=== PATIENT | male | born 1950 | race Caucasian/White ===

== ENCOUNTER 2017-02-13 11:24 | Inpatient (IN) | payer MEDICARE ==
[~2017-02-13] VITALS: Ht 190.5 cm; Wt 124.8 kg
[2017-02-13] VITALS (13 sets, daily range): BP systolic 158–244; BP diastolic 74–121
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
--- NOTE | ~2017-02-13 | PR ---
[place], [place] PROGRESS NOTE NAME: REBECCA NAVARRO UNIT #: [id number] ROOM: [facility] DOCTOR: CAMDEN ECHOLS MD BIRTHDATE: [birth year] DOS: 02/14/2017 SUBJECTIVE: The patient was seen at his bedside in the intensive care unit today, 02/15/2016, for followup of his hypertensive emergency. He is a 66-year-old man who presented to the hospital on the morning of 02/13/2017 with shortness of breath, lightheadedness and a tingling in his left arm followed by a pressure sensation in his left chest. His blood pressure was well over 200 systolic and therefore he came to the Emergency Room. Medications were adjusted and he did improve. This morning, he states that whenever he moves or turns his head, he feels that the room is spinning. He feels very unsteady. As part of the evaluation for this, he did undergo a CT of the head with contrast. No acute intracranial pathology was seen. He apparently did have an IVP dye reaction, which responded to steroids and antihistamines. PHYSICAL EXAMINATION: VITAL SIGNS: Today, his pulse is 73 and regular, blood pressure 158/83. He is afebrile. He weighs 124.8 kilograms with a body mass index 34.4. NECK: Supple. He has no jugular distention. Carotids are full. LUNGS: Respirations are unlabored. He has decreased breath sounds at the bases, but no wheezes or rales. HEART: Has a regular rhythm. He has a fourth heart sound, but no third heart sound or murmur. The PMI is not displaced. He has no precordial heave, lift or thrill. ABDOMEN: Soft. EXTREMITIES: Showed no edema. LABORATORY DATA: Hemoglobin is 13.7 with a white count of 5300, platelet count of 102,000. Sodium is 133 with potassium 4.2, BUN 12, creatinine 0.8. IMPRESSION: 1. Hypertensive emergency. The patient's blood pressure has improved with resumption of amlodipine. 2. Essential hypertension. 3. Polysubstance abuse. 4. Atypical chest pain. The patient shows no signs of an acute myocardial injury. 5. Type 2 diabetes mellitus. 6. Tobacco abuse. 7. Recent cocaine use. PLAN: I would continue to manage his blood pressure with calcium channel blockers since he believes that this seems to work best for him. I would like to start a diuretic, but his hyponatremia makes that decision problematic. An echocardiogram and a pharmacologic stress test should be done to complete his evaluation, but this can all be done as an outpatient. We will continue to follow him in the hospital with his other physicians. For now, we will check orthostatic vital signs, but I think that his symptoms are due to balance issues and middle ear problems. [place], [place] PROGRESS NOTE NAME: REBECCA NAVARRO UNIT #: [id number] ROOM: [facility] DOCTOR: CAMDEN ECHOLS MD BIRTHDATE: [birth year] I thank the hospitalist physicians for asking our advice regarding his care. CAMDEN ECHOLS MD CM:PNTRANS 1530 25 CAMDEN ECHOLS MD 02/14/[id number] interface
[~2017-02-13 11:24] MED LIST: HYDROCODONE BIT1 T11 PO; HYDROXYZINE PAM50 MG PO; MULTI VITAMINS1 TAB PO; ONDANSETRON4 MG PO; VITAMIN B COMPL1 CAP PO
[2017-02-13] MEDS ORDERED: METFORMIN HCL1000 MG PO (11:35)
[2017-02-13] MEDS ORDERED: GABAPENTIN100 M2 PO (11:35)
[2017-02-13] MEDS ORDERED: LISINOPRIL20 MG PO (11:35)
[2017-02-13] MEDS ORDERED: EPCLUSA 400 MG1 EACH PO (11:35)
[2017-02-13] MEDS ORDERED: OMEPRAZOLE D/R20 MG PO (11:35)
[2017-02-13] MEDS ORDERED: ZOLPIDEM TART10 MG PO (11:35)
[2017-02-13 11:45] LABS: EOS % 0.2 % (1.0-4.0); HEMATOCRIT 37.7 % (42.0-52.0); HEMOGLOBIN 13.8 g/dl (14.0-18.0); LYMPH # 1.2 10*3/uL (1.3-4.4); LYMPH % 20.1 % (27.0-41.0); MEAN CELL VOLUME 92.9 fl (80.0-94.0); MEAN CORPUSCULAR HGB CONC 36.6 g/dl (33.0-37.0); MEAN PLATELET VOLUME 9.8 fl (9.6-12.3); MONO # 0.4 10*3/uL (0.1-1.0); MONO % 7.3 % (3.0-9.0); NEUT # 4.2 10*3/uL (2.3-7.9); NEUT % 72.1 % (47.0-73.0); PLATELET COUNT AUTOMATED 90 10*3/uL (130-400); RED BLOOD COUNT 4.06 10*6/uL (4.50-5.90); RED CELL DISTRI WIDTH 11.8 % (0-14.5); WHITE BLOOD COUNT 5.8 10*3/uL (4.8-10.8)
[2017-02-13 11:54] LABS: ACT PARTIAL THROMBO TIME 24.6 SECONDS (20.8-31.5); INTERNATIONAL NORM RATIO 0.9 (2.0-3.5)
[2017-02-13 12:00] LABS: ALBUMIN 3.7 gm/dl (3.1-4.5); ALKALINE PHOSPHATASE 65 U/L (45-117); BUN 10 mg/dl (7-24); CHLORIDE 95 mmol/L (98-107); LIPASE 190 U/L (73-393); POTASSIUM 3.9 mmol/L (3.5-5.1); SGOT/AST 35 IU/L (3-35); SGPT/ALT 47 U/L (12-78); SODIUM 129 mmol/L (136-145); TOTAL PROTEIN 7.7 gm/dL (6.4-8.2)
[2017-02-13 12:01] LABS: TROPONIN I < 0.015 ng/ml (<0.045)
[2017-02-13 16:10] LABS: URINE AMPHETAMINES < 1000 (1000ng/ml); URINE BARBITURATES < 200 (200ng/ml); URINE BENZODIAZEPINES < 200 (200ng/ml); URINE CANNABINOIDS (THC) > 50 (50ng/ml); URINE COCAINE > 300 (300ng/ml); URINE METHADONE < 300 (300ng/ml); URINE OPIATES < 300 (300ng/ml)
[2017-02-13 16:13] LABS: URINE PHENCYCLIDINE < 25 (25ng/ml)
[2017-02-14] VITALS (10 sets, daily range): BP systolic 115–188; BP diastolic 58–88
[2017-02-14 04:43] LABS: BASO % 0.2 % (0.0-1.0); EOS # 0.1 10*3/uL (0.0-0.4); EOS % 1.1 % (1.0-4.0); HEMATOCRIT 36.9 % (42.0-52.0); HEMOGLOBIN 13.7 g/dl (14.0-18.0); LYMPH # 1.7 10*3/uL (1.3-4.4); LYMPH % 32.5 % (27.0-41.0); MEAN CELL VOLUME 94.4 fl (80.0-94.0); MEAN PLATELET VOLUME 9.9 fl (9.6-12.3); MONO # 0.5 10*3/uL (0.1-1.0); MONO % 10.3 % (3.0-9.0); NEUT # 2.9 10*3/uL (2.3-7.9); NEUT % 55.7 % (47.0-73.0); PLATELET COUNT AUTOMATED 102 10*3/uL (130-400); RED BLOOD COUNT 3.91 10*6/uL (4.50-5.90); WHITE BLOOD COUNT 5.3 10*3/uL (4.8-10.8)
[2017-02-14 04:57] LABS: BUN 12 mg/dl (7-24); CHLORIDE 97 mmol/L (98-107); POTASSIUM 4.2 mmol/L (3.5-5.1); SODIUM 133 mmol/L (136-145)
[2017-02-14 05:00] LABS: CHOLESTEROL 208 mg/dL (<200); TRIGLYCERIDES 325 mg/dl (<150); VLDL CHOLESTEROL 65 mg/dL (6-40)
[2017-02-14 05:08] LABS: FREE T4 0.99 ng/dl (0.76-1.46); HDL CHOLESTEROL 42 mg/dl (40-60); LDL CHOLESTEROL 101 mg/dL (9-159)
[2017-02-14 05:30] LABS: MEAN CORPUSCULAR HGB CONC 37.1 g/dl (33.0-37.0)
[2017-02-14 06:51] LABS: VITAMIN D, 25-HYDROXY 8.7 ng/mL (30-100)
[2017-02-15] VITALS: BP 148/73
[2017-02-15 04:00] VITALS: BP 151/85
[2017-02-15 08:00] VITALS: BP 156/86
[2017-02-15] MEDS ORDERED: MECLIZINE HCL25 M2 PO (10:39)
[2017-02-15] MEDS ORDERED: AMLODIPINE BESY10 MG PO (10:39)
== END 2017-02-15 12:05 | disposition home or self-care (01) | DRG 305 ==
LOC: ED 11:24 → EDHOLD 12:53 → ICCU 13:18
PROVIDERS: Emergency Medicine; Family Medicine
DX: I16.1 Hypertensive emergency (principal); D69.59 Other secondary thrombocytopenia; E87.1 Hypo-osmolality and hyponatremia; E11.65 Type 2 diabetes mellitus with hyperglycemia; Z82.49 Family history of ischemic heart disease and other diseases of the circulatory system; G89.29 Other chronic pain; K21.9 Gastro-esophageal reflux disease without esophagitis; R27.0 Ataxia, unspecified; B18.2 Chronic viral hepatitis C; F17.200 Nicotine dependence, unspecified, uncomplicated; F12.10 Cannabis abuse, uncomplicated; F14.10 Cocaine abuse, uncomplicated; D64.9 Anemia, unspecified; M54.9 Dorsalgia, unspecified; B19.20 Unspecified viral hepatitis C without hepatic coma; F10.129 Alcohol abuse with intoxication, unspecified; I10 Essential (primary) hypertension; Z88.5 Allergy status to narcotic agent; Z88.8 Allergy status to other drugs, medicaments and biological substances; Z79.84 Long term (current) use of oral hypoglycemic drugs; Z79.899 Other long term (current) drug therapy; Z90.49 Acquired absence of other specified parts of digestive tract; Z83.3 Family history of diabetes mellitus

== ENCOUNTER → 2017-04-05 | Outpatient (CLI) | payer MEDICARE ==
[~2017-04-05] MED LIST changes: +AMLODIPINE BESY10 MG PO; +EPCLUSA 400 MG1 EACH PO; +GABAPENTIN100 M2 PO; +LISINOPRIL20 MG PO; +MECLIZINE HCL25 M2 PO; +METFORMIN HCL1000 MG PO; +OMEPRAZOLE D/R20 MG PO; +ZOLPIDEM TART10 MG PO
== END | disposition home or self-care (01) ==
LOC: NM 09:54
DX: M17.11 Unilateral primary osteoarthritis, right knee (principal); M43.26 Fusion of spine, lumbar region; S83.241A Other tear of medial meniscus, current injury, right knee, initial encounter; X58.XXXA Exposure to other specified factors, initial encounter; Y93.89 Activity, other specified; Y92.89 Other specified places as the place of occurrence of the external cause; Y99.8 Other external cause status

== ENCOUNTER → 2017-04-16 | Outpatient (CLI) | payer MEDICARE | END | disposition home or self-care (01) | LOC: MRI 12:33 | DX: S83.231A Complex tear of medial meniscus, current injury, right knee, initial encounter (principal); M25.361 Other instability, right knee; M25.461 Effusion, right knee; R93.7 Abnormal findings on diagnostic imaging of other parts of musculoskeletal system; X58.XXXA Exposure to other specified factors, initial encounter; Y93.89 Activity, other specified; Y92.89 Other specified places as the place of occurrence of the external cause; Y99.8 Other external cause status ==

== ENCOUNTER → 2017-05-25 | Outpatient (CLI) | payer MEDICARE ==
[~2017-05-25] MED LIST changes: +B12100 MC1 PO; +METFORMIN1000 MG PO
--- NOTE | ~2017-05-25 | ST ---
[place], [place] EXERCISE STRESS TEST REPORT NAME: REBECCA NAVARRO UNIT #: [id number] ROOM: DOCTOR: REX ALEXANDRE MD BIRTHDATE: [birth year] DOS: 05/25/2017 LEXISCAN PORTION OF THE LEXISCAN CARDIOLITE Baseline cardiogram, sinus rhythm with right bundle branch block pattern, 0.4 mg Lexiscan, duration of 10 seconds of a 1 minute test duration. With Lexiscan, the patient had no chest discomfort, no dysrhythmia. Blood pressure and heart rate responses normal. Nuclear images will be reported separately. REX ALEXANDRE MD CM:STRESS:EXERCISE STRESS TEST REPORT [id number] REX ALEXANDRE MD
== END | disposition home or self-care (01) ==
LOC: CARD 03:41
DX: R53.81 Other malaise (principal); R94.31 Abnormal electrocardiogram [ECG] [EKG]

== ENCOUNTER → 2017-07-01 | Outpatient (CLI) | payer MEDICARE ==
[2017-07-01 10:08] LABS: BASO % 0.2 % (0.0-1.0); EOS # 0.1 10*3/uL (0.0-0.4); HEMATOCRIT 39.7 % (42.0-52.0); HEMOGLOBIN 14.1 g/dl (14.0-18.0); LYMPH # 1.5 10*3/uL (1.3-4.4); LYMPH % 30.2 % (27.0-41.0); MEAN CELL VOLUME 93.9 fl (80.0-94.0); MEAN CORPUSCULAR HGB 33.3 pg (27.0-31.0); MEAN CORPUSCULAR HGB CONC 35.5 g/dl (33.0-37.0); MEAN PLATELET VOLUME 10.7 fl (9.6-12.3); MONO # 0.4 10*3/uL (0.1-1.0); MONO % 7.6 % (3.0-9.0); NEUT # 3.1 10*3/uL (2.3-7.9); NEUT % 60.6 % (47.0-73.0); PLATELET COUNT AUTOMATED 139 10*3/uL (130-400); RED BLOOD COUNT 4.23 10*6/uL (4.50-5.90); RED CELL DISTRI WIDTH 12.4 % (0-14.5)
[2017-07-01 10:27] LABS: ALBUMIN 4.1 gm/dl (3.1-4.5); BILIRUBIN, DIRECT 0.2 mg/dL (0.0-0.2); BUN 20 mg/dl (7-24); CHLORIDE 99 mmol/L (98-107); CHOLESTEROL 218 mg/dL (<200); CREATININE 0.81 mg/dL (0.70-1.30); SGOT/AST 31 IU/L (3-35); SGPT/ALT 38 U/L (12-78); SODIUM 132 mmol/L (136-145); TRIGLYCERIDES 149 mg/dl (<150); VLDL CHOLESTEROL 30 mg/dL (6-40)
[2017-07-01 10:28] LABS: ALKALINE PHOSPHATASE 67 U/L (45-117); HDL CHOLESTEROL 53 mg/dl (40-60); LDL CHOLESTEROL 135 mg/dL (9-159); TOTAL PROTEIN 8.4 gm/dL (6.4-8.2)
[2017-07-02 22:04] LABS: HEPATITIS C QNT HCV Not Detected IU/mL (.)
== END | disposition home or self-care (01) ==
LOC: LAB 08:43
PROVIDERS: Internal Medicine
DX: Z13.220 Encounter for screening for lipoid disorders (principal); I10 Essential (primary) hypertension; E11.9 Type 2 diabetes mellitus without complications; B19.20 Unspecified viral hepatitis C without hepatic coma; Z79.899 Other long term (current) drug therapy

== ENCOUNTER 2017-09-14 17:25 | Emergency (ER) | payer MEDICARE ==
[~2017-09-14] VITALS: Wt 127.0 kg
[2017-09-14] MEDS ORDERED: VIBRAMYCIN100 MG PO (20:24)
== END 2017-09-14 20:28 | disposition home or self-care (01) ==
LOC: ED 17:25
DX: S91.332A Puncture wound without foreign body, left foot, initial encounter (principal); F17.200 Nicotine dependence, unspecified, uncomplicated; F12.10 Cannabis abuse, uncomplicated; F14.10 Cocaine abuse, uncomplicated; Z23 Encounter for immunization; Z90.49 Acquired absence of other specified parts of digestive tract; Z98.890 Other specified postprocedural states; Z79.899 Other long term (current) drug therapy; Z91.041 Radiographic dye allergy status; Z88.6 Allergy status to analgesic agent; Z88.5 Allergy status to narcotic agent; W22.8XXA Striking against or struck by other objects, initial encounter; Y93.89 Activity, other specified; Y92.89 Other specified places as the place of occurrence of the external cause; Y99.9 Unspecified external cause status

== ENCOUNTER → 2017-11-16 | Outpatient (CLI) | payer MEDICARE ==
[~2017-11-16] MED LIST changes: +VIBRAMYCIN100 MG PO
[2017-11-17 21:02] LABS: HEPATITIS C QUANTITATION HCV Not Detected IU/mL (.)
== END | disposition home or self-care (01) ==
LOC: LAB 08:41
PROVIDERS: Internal Medicine Gastroenterology
DX: B19.20 Unspecified viral hepatitis C without hepatic coma (principal)

== ENCOUNTER → 2018-02-28 | Outpatient (CLI) | payer MEDICARE ==
[2018-02-28 09:50] LABS: CHLORIDE 99 mmol/L (98-107); SODIUM 131 mmol/L (136-145)
[2018-02-28 10:10] LABS: ALBUMIN 3.7 gm/dl (3.1-4.5); ALKALINE PHOSPHATASE 63 U/L (45-117); BILIRUBIN, DIRECT 0.2 mg/dL (0.0-0.2); BUN 11 mg/dl (7-24); CHOLESTEROL 196 mg/dL (<200); CREATININE 0.91 mg/dL (0.70-1.30); HDL CHOLESTEROL 43 mg/dl (40-60); LDL CHOLESTEROL 90 mg/dL (9-159); SGOT/AST 20 IU/L (3-35); SGPT/ALT 36 U/L (12-78); TRIGLYCERIDES 313 mg/dl (<150); VLDL CHOLESTEROL 63 mg/dL (6-40)
== END | disposition home or self-care (01) ==
LOC: LAB 08:53
PROVIDERS: Internal Medicine
DX: E11.9 Type 2 diabetes mellitus without complications (principal)

== ENCOUNTER → 2018-04-13 | Outpatient (CLI) | payer MEDICARE | END | disposition home or self-care (01) | LOC: ORTHO 00:58 | DX: M17.11 Unilateral primary osteoarthritis, right knee (principal); G89.29 Other chronic pain; Z91.81 History of falling ==

== ENCOUNTER → 2018-04-14 | Outpatient (CLI) | payer MEDICARE | END | disposition home or self-care (01) | LOC: RESCLI 01:03 | DX: I10 Essential (primary) hypertension (principal); E11.9 Type 2 diabetes mellitus without complications; Z79.899 Other long term (current) drug therapy ==

== ENCOUNTER → 2018-05-23 | Outpatient (CLI) | payer MEDICARE ==
[2018-05-23 11:31] LABS: BUN 14 mg/dl (7-24); CHLORIDE 99 mmol/L (98-107); CHOLESTEROL 182 mg/dL (<200); CREATININE 0.76 mg/dL (0.70-1.30); HDL CHOLESTEROL 57 mg/dl (40-60); LDL CHOLESTEROL 107 mg/dL (9-159); POTASSIUM 4.2 mmol/L (3.5-5.1); SODIUM 133 mmol/L (136-145); TRIGLYCERIDES 90 mg/dl (<150); VLDL CHOLESTEROL 18 mg/dL (6-40)
== END | disposition home or self-care (01) ==
LOC: LAB 10:42
PROVIDERS: Internal Medicine
DX: E11.9 Type 2 diabetes mellitus without complications (principal)

== ENCOUNTER → 2018-06-21 | Outpatient (CLI) | payer MEDICARE | END | disposition home or self-care (01) | LOC: RESCLI 00:42 | DX: E11.9 Type 2 diabetes mellitus without complications (principal); F17.200 Nicotine dependence, unspecified, uncomplicated ==

== ENCOUNTER → 2018-07-27 | Outpatient (CLI) | payer MEDICARE | END | disposition home or self-care (01) | LOC: RESCLI 00:27 | DX: Z23 Encounter for immunization (principal); I10 Essential (primary) hypertension; E11.9 Type 2 diabetes mellitus without complications; Z79.899 Other long term (current) drug therapy ==

== ENCOUNTER → 2018-10-19 | Outpatient (CLI) | payer MEDICARE | END | disposition home or self-care (01) | LOC: RESCLI 01:55 | DX: E11.9 Type 2 diabetes mellitus without complications (principal); I10 Essential (primary) hypertension; B18.2 Chronic viral hepatitis C; Z79.899 Other long term (current) drug therapy ==

== ENCOUNTER → 2018-11-25 | Outpatient (CLI) | payer MEDICARE ==
[~2018-11-25] MED LIST changes: +ASPIR-TRIN325 MG PO; +ENOXAPARIN40 MG/0.2 SC; +JANUVIA25 MG PO; +Percocet 325 MG1 TAB PO; +VITAMIN D50000 UNIT PO
== END | disposition home or self-care (01) ==
LOC: MRI 13:38
DX: M51.27 Other intervertebral disc displacement, lumbosacral region (principal); M51.26 Other intervertebral disc displacement, lumbar region

== ENCOUNTER → 2018-11-29 | Outpatient (CLI) | payer MEDICARE ==
[~2018-11-29] MED LIST changes: -ASPIR-TRIN325 MG PO; -ENOXAPARIN40 MG/0.2 SC; -JANUVIA25 MG PO; -Percocet 325 MG1 TAB PO; -VITAMIN D50000 UNIT PO
== END | disposition home or self-care (01) ==
LOC: CT 00:59
DX: M17.11 Unilateral primary osteoarthritis, right knee (principal); M25.461 Effusion, right knee; M16.11 Unilateral primary osteoarthritis, right hip

== ENCOUNTER → 2018-12-13 | Outpatient (CLI) | payer MEDICARE ==
[~2018-12-13] MED LIST changes: +JANUVIA25 MG PO
[2018-12-13 08:39] LABS: BASO % 0.2 % (0.0-1.0); EOS % 0.4 % (1.0-4.0); HEMATOCRIT 40.6 % (42.0-52.0); HEMOGLOBIN 14.4 g/dl (14.0-18.0); LYMPH # 1.2 10*3/uL (1.3-4.4); LYMPH % 23.2 % (27.0-41.0); MEAN CELL VOLUME 96.7 fl (80.0-94.0); MEAN CORPUSCULAR HGB 34.3 pg (27.0-31.0); MEAN CORPUSCULAR HGB CONC 35.5 g/dl (33.0-37.0); MEAN PLATELET VOLUME 10.4 fl (9.6-12.3); MONO # 0.5 10*3/uL (0.1-1.0); MONO % 9.4 % (3.0-9.0); NEUT # 3.5 10*3/uL (2.3-7.9); NEUT % 66.2 % (47.0-73.0); PLATELET COUNT AUTOMATED 156 10*3/uL (130-400); RED CELL DISTRI WIDTH 11.9 % (0-14.5); WHITE BLOOD COUNT 5.3 10*3/uL (4.8-10.8)
[2018-12-13 08:49] LABS: ALBUMIN 3.8 gm/dl (3.1-4.5); ALKALINE PHOSPHATASE 51 U/L (45-117); BILIRUBIN, DIRECT 0.2 mg/dL (0.0-0.2); BUN 11 mg/dl (7-24); CHLORIDE 93 mmol/L (98-107); CHOLESTEROL 200 mg/dL (<200); CREATININE 0.79 mg/dL (0.70-1.30); HDL CHOLESTEROL 55 mg/dl (40-60); LDL CHOLESTEROL 109 mg/dL (9-159); SGOT/AST 25 IU/L (3-35); SGPT/ALT 44 U/L (12-78); SODIUM 128 mmol/L (136-145); TOTAL PROTEIN 7.8 gm/dL (6.4-8.2); TRIGLYCERIDES 180 mg/dl (<150); VLDL CHOLESTEROL 36 mg/dL (6-40)
== END | disposition home or self-care (01) ==
LOC: LAB 06:53
PROVIDERS: Internal Medicine Gastroenterology
DX: I10 Essential (primary) hypertension (principal); E11.9 Type 2 diabetes mellitus without complications; K74.60 Unspecified cirrhosis of liver

== ENCOUNTER → 2018-12-16 | Outpatient (CLI) | payer MEDICARE | END | disposition home or self-care (01) | LOC: LAB 10:45 | DX: Z12.5 Encounter for screening for malignant neoplasm of prostate (principal) ==

== ENCOUNTER → 2019-01-03 | Outpatient (CLI) | payer MEDICARE ==
[2019-01-03 13:33] LABS: BILIRUBIN NEGATIVE (NEGATIVE); BLOOD NEGATIVE (NEGATIVE); CLARITY CLEAR (CLEAR); COLOR YELLOW (YELLOW); GLUCOSE NEGATIVE (NEGATIVE); KETONE NEGATIVE (NEGATIVE); LEUKO ESTERASE NEGATIVE (NEGATIVE); NITRITE NEGATIVE (NEGATIVE); PH 5.5 (5.0-9.0); UROBILINOGEN 0.2 E.U./dl (0.2-1.0)
[2019-01-03 13:41] LABS: ALKALINE PHOSPHATASE 50 U/L (45-117); BASO % 0.1 % (0.0-1.0); BUN 14 mg/dl (7-24); CHLORIDE 98 mmol/L (98-107); CREATININE 0.74 mg/dL (0.70-1.30); EOS % 0.3 % (1.0-4.0); HEMATOCRIT 41.5 % (42.0-52.0); HEMOGLOBIN 15.1 g/dl (14.0-18.0); LYMPH # 1.7 10*3/uL (1.3-4.4); LYMPH % 23.8 % (27.0-41.0); MEAN CELL VOLUME 94.7 fl (80.0-94.0); MEAN CORPUSCULAR HGB 34.5 pg (27.0-31.0); MEAN CORPUSCULAR HGB CONC 36.4 g/dl (33.0-37.0); MEAN PLATELET VOLUME 10.1 fl (9.6-12.3); MONO # 0.6 10*3/uL (0.1-1.0); MONO % 8.9 % (3.0-9.0); NEUT # 4.7 10*3/uL (2.3-7.9); NEUT % 66.6 % (47.0-73.0); PLATELET COUNT AUTOMATED 158 10*3/uL (130-400); POTASSIUM 4.1 mmol/L (3.5-5.1); RED BLOOD COUNT 4.38 10*6/uL (4.50-5.90); RED CELL DISTRI WIDTH 12.4 % (0-14.5); SGOT/AST 31 IU/L (3-35); SGPT/ALT 51 U/L (12-78); SODIUM 131 mmol/L (136-145); TOTAL PROTEIN 8.1 gm/dL (6.4-8.2)
[2019-01-03 13:42] LABS: EPITHELIAL CELLS 0-2; WBC 0-2 wbc/hpf (0-5)
== END | disposition home or self-care (01) ==
LOC: LAB 12:42
PROVIDERS: Orthopaedic Surgery
DX: Z01.818 Encounter for other preprocedural examination (principal); M17.9 Osteoarthritis of knee, unspecified

== ENCOUNTER → 2019-01-16 | Outpatient (CLI) | payer MEDICARE ==
[~2019-01-16] MED LIST changes: +ASPIR-TRIN325 MG PO; +ENOXAPARIN40 MG/0.2 SC; +Percocet 325 MG1 TAB PO; +VITAMIN D50000 UNIT PO
== END | disposition home or self-care (01) ==
LOC: RESCLI 01:36
DX: Z01.818 Encounter for other preprocedural examination (principal); E11.65 Type 2 diabetes mellitus with hyperglycemia; M25.569 Pain in unspecified knee; I10 Essential (primary) hypertension; E55.9 Vitamin D deficiency, unspecified; G47.00 Insomnia, unspecified; Z72.0 Tobacco use; Z79.899 Other long term (current) drug therapy

== ENCOUNTER 2019-01-17 01:23 | Inpatient (IN) | payer MEDICARE ==
[~2019-01-17] VITALS: Ht 190.5 cm; Wt 122.5 kg
[2019-01-17] VITALS (11 sets, daily range): BP systolic 116–161; BP diastolic 45–88
[~2019-01-17 01:23] MED LIST changes: -ASPIR-TRIN325 MG PO; -ENOXAPARIN40 MG/0.2 SC; -Percocet 325 MG1 TAB PO; -VITAMIN D50000 UNIT PO
--- NOTE | 2019-01-17 16:00 | NUR ---
Time: 1599 A 68 year old MALE admitted to under services of SUSAN EMANUEL DO. Pt. arrived via bed from [place]. Chief complaint: POST OP TOTAL RIGHT KNEE REPLACEMENT. LISA POLANCO
--- NOTE | 2019-01-17 16:24 | NUR ---
PATIENT MEDICATED WITH 2 PERCOCET AT THIS TIME PER ORDER FOR COMPLAINTS OF PAIN 9/10 TO RIGHT LEG/KNEE. WILL MONITOR.
[2019-01-17] MEDS ORDERED: VITAMIN D50000 UNIT PO (16:37)
[2019-01-17 16:38] LABS: HEMATOCRIT 37.8 % (42.0-52.0); HEMOGLOBIN 13.4 g/dl (14.0-18.0); MEAN CELL VOLUME 97.4 fl (80.0-94.0); MEAN CORPUSCULAR HGB 34.5 pg (27.0-31.0); MEAN CORPUSCULAR HGB CONC 35.4 g/dl (33.0-37.0); MEAN PLATELET VOLUME 10.3 fl (9.6-12.3); PLATELET COUNT AUTOMATED 154 10*3/uL (130-400); RED BLOOD COUNT 3.88 10*6/uL (4.50-5.90); RED CELL DISTRI WIDTH 12.3 % (0-14.5); WHITE BLOOD COUNT 9.1 10*3/uL (4.8-10.8)
[2019-01-17 16:49] LABS: TOTAL CELLS COUNTED 100 #CELLS
[2019-01-17 16:50] LABS: PLATELET SUFFICIENCY NORMAL (NORMAL)
[2019-01-17 17:03] LABS: CREATININE 9.82 mg/dL (0.70-1.30); POTASSIUM 3.4 mmol/L (3.5-5.1)
[2019-01-17 17:57] LABS: BUN 15 mg/dl (7-24); CHLORIDE 101 mmol/L (98-107); CREATININE 0.92 mg/dL (0.70-1.30); POTASSIUM 4.3 mmol/L (3.5-5.1); SODIUM 131 mmol/L (136-145)
--- NOTE | 2019-01-17 20:28 | NUR ---
IS INSTRUCT X10 BREATHS. GOOD EFFORT. WILL CONTINUE ON OWN
--- NOTE | 2019-01-17 22:05 | NUR ---
PERCOCET GIVEN FOR C/O 09/24 PAIN TO RT KNEE. BED IN LOW, LOCKED POS, CALL LIGHT WITHIN [facility].
[2019-01-18] VITALS: BP 158/73
--- NOTE | 2019-01-18 03:22 | NUR ---
PERCOCET GIVEN PER PT REQUEST PRIOR TO USING CPM MACHINE. PAIN RATED 5/10. CALL LIGHT IN REACH. DRESSING TO RT LEG INTACT.
--- NOTE | 2019-01-18 04:19 | NUR ---
CPM MACHING INITIATED AT THIS TIME. PATIENT TOLERATING WELL.
[2019-01-18 07:17] LABS: BASO % 0.1 % (0.0-1.0); HEMATOCRIT 32.8 % (42.0-52.0); HEMOGLOBIN 11.8 g/dl (14.0-18.0); LYMPH % 8.7 % (27.0-41.0); MEAN CORPUSCULAR HGB 34.9 pg (27.0-31.0); MEAN PLATELET VOLUME 10.4 fl (9.6-12.3); MONO # 0.7 10*3/uL (0.1-1.0); MONO % 6.5 % (3.0-9.0); NEUT # 9.5 10*3/uL (2.3-7.9); NEUT % 84.2 % (47.0-73.0); PLATELET COUNT AUTOMATED 167 10*3/uL (130-400); RED BLOOD COUNT 3.38 10*6/uL (4.50-5.90); RED CELL DISTRI WIDTH 12.1 % (0-14.5); WHITE BLOOD COUNT 11.3 10*3/uL (4.8-10.8)
[2019-01-18 07:40] LABS: BUN 14 mg/dl (7-24); CHLORIDE 97 mmol/L (98-107); CREATININE 0.83 mg/dL (0.70-1.30); PHOSPHOROUS 3.4 mg/dL (2.5-4.9); POTASSIUM 4.4 mmol/L (3.5-5.1); SODIUM 130 mmol/L (136-145)
--- NOTE | 2019-01-18 07:59 | NUR ---
PHYSICAL THERAPY Screen received as well as orders for Physical Therapy will follow thank you Marlene Salmeron PT
[2019-01-18 08:00] VITALS: BP 158/88
--- NOTE | 2019-01-18 08:40 | NUR ---
Occupational therapy evaluation completed in full on floor five. Patient precautions include fall risk, ww use, R LE WBAT, R total knee, and L UE IV line. Per OT eval, OT recommends SNF. If refused, home with HH SN, OT, and PT. Patient would benefit from OT treatment to maximize safety and independence in ADLs and functional mobility/transfers. Patient complexity is low, [id number]. Thank you for the referral. Jazmin Warner, OTR/L
--- NOTE | 2019-01-18 09:34 | NUR ---
IT INFRASTRUCTURE PROJECT MANAGER received notice from PT that the patient would like to be referred to [facility]. IT INFRASTRUCTURE PROJECT MANAGER faxed referral to [facility]. Will fax PT Eval when available to complete referral. Patient will require 3 night stay and acceptance. IT INFRASTRUCTURE PROJECT MANAGER notified Case Joel Fish. -FITO Rogers
--- NOTE | 2019-01-18 10:46 | NUR ---
PHYSICAL THERAPY Emery completed moderate level of complexity-[id number] recomend SNF at discharge. PT to work on ROM,Transfers,AMB,Safety, will follow thank you Marlene Salmeron PT
--- NOTE | 2019-01-18 11:26 | NUR ---
MICROBIOLOGY LAB ANALYST faxed PT/OT Evals to [facility]. -FITO Rogers
--- NOTE | 2019-01-18 13:05 | NUR ---
PHYSICAL THERAPY Patient seen this pm 1:1 for therapy visit and was sitting up in bedside chair upon therapist arrival. Patient identified by name / and presented with R knee jerson wrap / increased edema. Patient reports 6/10 R knee pain and is WBAT on R LE, transfering sit to stand from low chair surface, Min A x 1. Patient ambulates with use of wh walker, CGA, 30'x 1, demonstrating antalgic, "step to" gait pattern. Patient needed v/c to control gait velocity to improve safety and returned to bedside chair with increaed fatigue. Patient also instructed on seated Quad / Glute set and R LE heel slide, demonstrated very limited R knee flexion x 10 reps each. Patient remained in bedside chair with call light, tray table and telephone. Patient declined use of body alarm and assured therapist he would not get up without [facility] staff assistance. Will continue per POC as tolerated, total treatment time 17 minutes. Josh Hunt, TURBINE ENGINE ASSEMBLER
--- NOTE | 2019-01-18 13:30 | NUR ---
OT NOTE Pt was seen this P.M. 1:1 for 20 minute OT session. Upon arrival pt was sitting upright in the recliner. Pt identified by name and and had complaints of 6/10 R knee pain. Pt presented to therapy with IV in RUE which remained in place throughout entire session. Pt completed sit to stand from chair level with Kash and use of w/w for UE support with education for improved technique. Challenged pt's static standing tolerance needed for increased I in self care tasks and functional transfers, pt was able to tolerate aprox 4 minutes at a time before sitting due to fatigue. Pt then completed functional mobility to the bathroom and back with Kash and use of w/w for assist with proper step sequencing and correcing occasional LOB forwards that occured due to poor walker understanding. Pt was then educated on keeping a little more distance between self and the walker and pt no longer had LOB forwards. Pt was left sitting upright in the recliner with call light in hand, tray table in place, and resting pain of 7/10 in his R knee. Continue with rec D/C plan to SNF. MANAN Johnson/Arabella
--- NOTE | 2019-01-18 15:01 | NUR ---
Patient has been accepted at [facility]. Patient requires a 3 night stay. Patient can go to [facility] Wednesday01/20/2019 if medically stable. SENIOR UNIX ADMINISTRATOR will notify Historic Preservationist. -FITO Rogers
[2019-01-18 16:00] VITALS: BP 155/60
--- NOTE | 2019-01-18 16:05 | NUR ---
SPOKE TO PT REGARDING PLACING CPM MACHINE. PT STATED HE WAS SORE. I THEN EXP[LAINED WE COULD PLACE IT ON HIM CLOSER TO SHIFT CHANGE. PT STATED HE WAS OK WITH THAT.
--- NOTE | 2019-01-18 16:09 | NUR ---
D/C [facility] PER PHYSICIAN ORDER.DRAINED 200 CC STRAW URINE. PT TOLERATED WELL.2 PERCOSET 5/325 MG GIVEN PER PHYSICIAN ORDER FOR C/O RLE PAIN,09/24.
--- NOTE | 2019-01-18 16:17 | NUR ---
Supervisor [employer] in to talk to patient. Patient states lives at HOME with ALONE. There are 3 steps in the home. Physician: ERLIN Pharmacy: [facility] health services: NONE Patient's level of ADLs: INDEPENDENT Patient has working utilities: YES DME: NONE Follow-up physician's appointment after d/c: WILL BE MADE BY HOSPITALIST NURSE DIRECTOR ON DISCHARGE Does patient want to access PORTAL?: NO Discharge plan PT LIVES AT HOME ALONE IN A TRAILER. STATES HE HAS 3 STEPS OUTSIDE TO GET IN THEN ALL ONE FLOOR. PT HAD KNEE REPLACEMENT AND WANTS TO GO TO [facility] FOR REHAB BEFORE GOING HOME. REFERRAL HAS BEEN MADE BY ALARM FIELD TECHNICIAN. DENIES ANY OTHER NEEDS AT THIS TIME. WILL CONTINUE TO FOLLOW. . FIONA ARREOLA
--- NOTE | 2019-01-18 18:32 | NUR ---
I ASKED PT IF HE WOULD LIKE CPM ON NOW AND HE REFUSED AT HTIS TIME AMND STATED HE WOULD WAIT UNTIL NEXT SHIFT.
--- NOTE | 2019-01-18 19:30 | NUR ---
PATIENT PLACED ON CPM MACHINE AT THIS TIME. TOLERATING WELL. WILL CONTINUE TO MONITOR.
[2019-01-18 20:00] VITALS: BP 162/74
--- NOTE | 2019-01-18 20:22 | NUR ---
PATIENT MEDICATED WITH PERCOCET AT THIS TIME FOR RIGHT KNEE PAIN. RATES 09/24. WILL CHECK EFFECTIVENESS.
--- NOTE | 2019-01-18 20:35 | NUR ---
PATIENT REQUESTING TO BE TAKEN OFF OF CPM MACHINE AT THIS TIME DUE TO HIS KNEE BEING SORE. PATIENT TAKEN OFF. WILL RETRY.
--- NOTE | 2019-01-18 22:43 | NUR ---
PATIENT SLEEPING, PERCOCET EFFECTIVE. NO SIGNS OF DISTRESS. RESPIRATIONS EASY, NON LABORED. WILL CONTINUE TO MONITOR.
[2019-01-19] VITALS: BP 120/64
[2019-01-19 06:38] LABS: BASO % 0.1 % (0.0-1.0); EOS % 0.6 % (1.0-4.0); HEMATOCRIT 29.2 % (42.0-52.0); HEMOGLOBIN 10.2 g/dl (14.0-18.0); LYMPH % 28.7 % (27.0-41.0); MEAN CORPUSCULAR HGB 33.9 pg (27.0-31.0); MEAN CORPUSCULAR HGB CONC 34.9 g/dl (33.0-37.0); MEAN PLATELET VOLUME 10.4 fl (9.6-12.3); MONO # 0.7 10*3/uL (0.1-1.0); MONO % 9.6 % (3.0-9.0); NEUT # 4.2 10*3/uL (2.3-7.9); NEUT % 60.7 % (47.0-73.0); PLATELET COUNT AUTOMATED 141 10*3/uL (130-400); RED BLOOD COUNT 3.01 10*6/uL (4.50-5.90); RED CELL DISTRI WIDTH 12.4 % (0-14.5); WHITE BLOOD COUNT 6.9 10*3/uL (4.8-10.8)
[2019-01-19 06:59] LABS: BUN 12 mg/dl (7-24); CHLORIDE 102 mmol/L (98-107); SODIUM 134 mmol/L (136-145)
[2019-01-19 07:01] LABS: CREATININE 0.78 mg/dL (0.70-1.30)
[2019-01-19 08:00] VITALS: BP 157/92
--- NOTE | 2019-01-19 08:30 | NUR ---
Patient placed on CPM.
--- NOTE | 2019-01-19 09:33 | NUR ---
CPM machine removed. Patient tolerated well.
--- NOTE | 2019-01-19 10:05 | NUR ---
Percocet given per patient request for c/o surgical pain. Pain is rated 8/10. Will monitor.
--- NOTE | 2019-01-19 10:40 | NUR ---
OT NOTE Pt was seen this A.M. 1:1 for 25 minute OT session. Upon arrival pt was supine in bed. Pt identified by name and and had complaints of 10/10 R knee pain. Pt transferred supine to sit EOB with SBA. While sitting EOB pt donned shorts with Kash for inital start over his R foot. Attempted to educate pt on LB adaptive equipment for increased I and pt stated "that is not the same kind I have at home, so just forget it." Pt continued to decline adaptive equipment. Pt then donned R sock with modA and L sock with Kash. Sit to stand completed from bed level with CGA for safety. While standing pt donned gown with CGA. Functional monbility then completed to the bathroom and back with CGA and use of w/w. Pt was left sitting upright in the recliner with call light in hand, tray table in place, and phone in reach. Continue with rec D/C plan to SNF. MANAN Johnson/Arabella
--- NOTE | 2019-01-19 10:40 | NUR ---
Percocet effective. Patient states pain is tolerable.
--- NOTE | 2019-01-19 11:24 | NUR ---
Ativan given per patient request for c/o anxiety. Will monitor.
--- NOTE | 2019-01-19 11:34 | NUR ---
PHYSICAL THERAPY Patient presented to therapy in standing at bedside with report of 10/10 pain in the L knee. Patient say he just had percocet shortly ago. Patient was identified by name and on wristband. Patient gives informed consent for treatment. Patient is in a foul mood DUE TO PAIN AND BEING UNCOMFORTABLE. Patient transferred back to supine in bed with SBA to give his L LE a rest. Patient supine to sitting at EOB with MIN A X 1 to assist with lowering L LE to the ground. Patient sat on EOB with SBA. Patient sit to stand from EOB with CGA X 1. Patient ambulated with Wh Walker and Close Supervision for 40' x 1 with no LOB and continued high pain level in R knee. Patient transferred to bedside chair with SBA and verbal cues for kicking R LE out in front of him and putting his hands back on armrests of chair. Patient was left in bedside chair with call light within reach, LEs elevated and DR. Umana in room attending to patient's R knee. Patient was 1:1 with this TARGET PROTECTION SPECIALIST for 20 minutes total. YAYA WINTER TARGET PROTECTION SPECIALIST
--- NOTE | 2019-01-19 12:14 | NUR ---
PT HAS BEEN ACCEPTED TO [facility] AND WILL NEED TO COMPLETE A 3 NIGHT STAY WHICH WILL BE TOMORROW. WILL CONTINUE TO FOLLOW.
--- NOTE | 2019-01-19 12:20 | NUR ---
Ativan effective. Patient satisfied.
--- NOTE | 2019-01-19 12:52 | NUR ---
SOCIAL WORKER MASTERS completed HENs. -FITO Rogers
--- NOTE | 2019-01-19 14:25 | NUR ---
OT NOTE Pt was seen this P.M. 1:1 for second OT session consisting of 15 minutes. Upon arrival pt was supine in bed. Pt identified by name and and had complaints of 6/10 R knee pain. Pt transferred supine to sit EOB with SBA. Sit to stand completed from bed level with CGA and use of w/w. Functional mobility was then completed to the bathroom with CGA and use of w/w with verbal prompts to slow down due to being impulsive and increasing risk of falls. Pt was able to transfer on/off standard commode with CGA and use of grab bar for UE support. Pt then stood sink side while wasing his hands with CGA for safety. Functional mobility completed back to the EOB where he was educated on "hooking" technique for transferring RLE into bed. Pt transferred sit to supine with SBA. There he was left with call light in hand, tray table in place, and bed alarm activated for safety. Continue with rec D/Cplan to SNF. MANAN Johnson/Arabella
--- NOTE | 2019-01-19 14:46 | NUR ---
PHYSICAL THERAPY Patient presented to therapy in supine with head of bed flat and bed alarm off. Patient was identified by name and of wristband. Patient gives informed consent for treatment. Patient performed supine to sitting at EOB with SBA. Patient sat on EOB unassisted. Patient sit to stand from EOB with CGA X 1. Patient ambulated with Wh Walker and CGA X 1 to Close Supervision 60' x 2 WITH VERBAL CUES FOR HEEL DOWN and extending of R LE. Patient transferred back to supine in bed with SBA. Patient was left in supine in bed with call light within reach. Patient was 1:1 with this MEDICAL RECORDS RECEPTIONIST for 18 minutes total. YAYA WINTER MEDICAL RECORDS RECEPTIONIST
--- NOTE | 2019-01-19 15:13 | NUR ---
Haugan given per patient request for c/o surgical pain rated 8/10. Will monitor.
--- NOTE | 2019-01-19 15:18 | NUR ---
Per family member patient is an alcoholic. Physician notified.
--- NOTE | 2019-01-19 15:22 | NUR ---
Spoke with Dr. Delaney regarding patients alcohol use, increased anxiety, and per family member patient may not be telling the entire truth. See new orders.
[2019-01-19 16:00] VITALS: BP 155/68
--- NOTE | 2019-01-19 16:10 | NUR ---
Percocet effective. Patient satisfied.
[2019-01-19 20:00] VITALS: BP 152/63
--- NOTE | 2019-01-19 20:53 | NUR ---
PATIENT MEDICATED PER REQUEST WITH PERCOCET. RATES RIGHT KNEE PAIN 09/24. WILL CHECK EFFECTIVENESS.
--- NOTE | 2019-01-19 21:00 | NUR ---
ATTEMPTED TO PLACE PATIENT ON CMP MACHINE. PATIENT REFUSING. WILL RETRY
--- NOTE | 2019-01-19 23:00 | NUR ---
PATIENT SLEEPING. PERCOCET EFFECTIVE. WILL CONTINUE TO MONITOR.
[2019-01-20] VITALS: BP 145/68
[2019-01-20 06:05] LABS: BASO % 0.3 % (0.0-1.0); EOS % 0.6 % (1.0-4.0); HEMATOCRIT 30.8 % (42.0-52.0); HEMOGLOBIN 10.8 g/dl (14.0-18.0); LYMPH # 1.7 10*3/uL (1.3-4.4); LYMPH % 24.1 % (27.0-41.0); MEAN CELL VOLUME 96.9 fl (80.0-94.0); MEAN CORPUSCULAR HGB CONC 35.1 g/dl (33.0-37.0); MEAN PLATELET VOLUME 10.2 fl (9.6-12.3); MONO # 0.6 10*3/uL (0.1-1.0); NEUT # 4.6 10*3/uL (2.3-7.9); NEUT % 65.6 % (47.0-73.0); PLATELET COUNT AUTOMATED 177 10*3/uL (130-400); RED BLOOD COUNT 3.18 10*6/uL (4.50-5.90); RED CELL DISTRI WIDTH 12.4 % (0-14.5)
--- NOTE | 2019-01-20 06:19 | NUR ---
PATIENT PLACED ON CPM MACHINE AT THIS TIME AT 50%. PATIENT ALSO MEDICATED WITH PERCOCET AT THIS TIME FOR COMPLAINTS OF KNEE PAIN. RATES 08/24. WILL CHECK EFFECTIVENESS.
[2019-01-20 06:24] LABS: ALBUMIN 3.5 gm/dl (3.1-4.5); ALKALINE PHOSPHATASE 63 U/L (45-117); BUN 7 mg/dl (7-24); CHLORIDE 98 mmol/L (98-107); CREATININE 0.75 mg/dL (0.70-1.30); POTASSIUM 3.9 mmol/L (3.5-5.1); SGOT/AST 39 IU/L (3-35); SGPT/ALT 66 U/L (12-78); SODIUM 132 mmol/L (136-145); TOTAL PROTEIN 7.2 gm/dL (6.4-8.2)
[2019-01-20 08:00] VITALS: BP 134/62
--- NOTE | 2019-01-20 08:55 | NUR ---
PHYSICAL THERAPY Patient seen this am 1:1 for therapy visit and was supine in bed following CPM treatment upon therapist arrival. Patient identified by name / and reports no c/o's pain at this time other than increased R knee stiffness. Patient transfers supine to sit EOB with use of overhead trapeze bar, MIN A, then sit to stand CGA. Patient ambulates with use of wh walker, CGA, 50'x 3, demonstrating uneven stride, needing v/c for improved walker safety / navigation to prevent risk of falling. Patient also needed brief standing rest break between gait trials secondary to fatigue and retuned to bedside chair. Patient remained in chair in semi reclined position with call light, tray table, cell phone and ice pack to control R knee edema. Patient instructed to leave ice pack on 20 minutes then off for 40 PRN. Patient voices no new c/o's and will continue per POC as tolerated, total treatment time 18 minutes. Josh Hunt, STATE COMPTROLLER
--- NOTE | 2019-01-20 09:13 | NUR ---
OT NOTE Pt was seen this A.M. 1:1 for 23 minute OT session. Upon arrival pt was supine in bed. Pt identified by name and and had no complaints at this time. Pt transferred supine to sit EOB with SBA and use of overhead trapeze bar. While sitting EOB pt was educated and demonstrated on use of client experience specialist and sock aid for increased I in lower body dressing. Pt doffed B socks with use of client experience specialist and Kash for assist with doffing over his heels. Pt then donned L sock with use of sock aid and SBA and R with modA due to being unable to lift his R leg without assist. Pt completed sit to stand from bed level with CGA and use of w/w for UE support. Challenged pt's dyanmic standing balance while reaching over all planes, weight shifting, and crossing midline. Pt was able to maintain F+ standing balance throghout. Then challenged pt's dynamic standing tolerance needed for increased I in self care tasks and functional transfers. Pt was able to tolerate aprox 10 minutes before sitting due to fatigue. Pt was left sitting upright in the recliner with call light in hand, tray table in place, and phone in reach. COntinue with rec D/C plan to SNF. MANAN Johnson/Arabella
--- NOTE | 2019-01-20 09:40 | NUR ---
Received a call from office regarding discharge instructions. Patient to remain on Lovenox (current dose) 14 days and then Aspirin 325mg daily for 6 weeks. Follow up visit scheduled [id number].
[2019-01-20] MEDS ORDERED: Percocet 325 MG1 TAB PO (10:27)
[2019-01-20] MEDS ORDERED: ENOXAPARIN40 MG/0.2 SC (10:27)
[2019-01-20] MEDS ORDERED: ASPIR-TRIN325 MG PO ×2 (10:27→11:26)
--- NOTE | 2019-01-20 11:53 | NUR ---
WIGS SALESPERSON received notice of the patients discharge. WIGS SALESPERSON spoke with GIA Edgar. WIGS SALESPERSON reached out to [facility] to schedule a 1:30pm transport. WIGS SALESPERSON notified GIA Edgar, [facility] Goodwin, and [facility]. WIGS SALESPERSON spoke with the patient about the scheduled transport with [facility] at 1pm. Patient agreeable. Patient stated he would reach out to his family and make them aware. WIGS SALESPERSON will fax discharge orders to [facility]. -FITO Rogers
--- NOTE | 2019-01-20 11:55 | NUR ---
Called Dr. Ramirez with CT results. See new orders.
--- NOTE | 2019-01-20 12:48 | NUR ---
Contacted to notify him that patient is refusing EGD today.
--- NOTE | 2019-01-20 13:25 | NUR ---
PT BEING DISCHARGED TO [facility] TODAY.
--- NOTE | 2019-01-20 14:00 | NUR ---
Discharge instructions reviewed with patient/family. Patient receptive and verbalizes understanding. Follow-up care arranged. Written instructions given to patient/family. Patient was educated on new medications and scheduled appointment with Dr. Umana. He was wheeled from unit by EMT's with all personal belongings accounted for. MAURY BAIRES
--- NOTE | 2019-01-20 14:06 | NUR ---
Nurse to nurse report called to GIA Funk at [facility].
--- NOTE | 2019-01-20 15:25 | NUR ---
OCCUPATIONAL THERAPY CO-SIGN I approve of the Occupational Therapy notes written above. ROXIE MANN OTR/Arabella
--- NOTE | 2019-01-25 07:45 | NUR ---
PHYSICAL THERAPY CO-SIGN I approve of the Physical Therapy notes written above. Marlene Salmeron PT
== END 2019-01-20 14:00 | disposition other institution (70) | DRG 470 ==
LOC: SDC 01:23 → 5E 14:21 → 4E 01-19 16:44 → 5E 01-19 17:00
PROVIDERS: Internal Medicine; Orthopaedic Surgery; ADMIT Family Medicine
PROC: 0SRC0J9 Replacement of Right Knee Joint with Synthetic Substitute, Cemented, Open Approach (ICD-10-PCS; principal; 2019-01-17)
DX: M17.11 Unilateral primary osteoarthritis, right knee (principal); K21.0 Gastro-esophageal reflux disease with esophagitis; I10 Essential (primary) hypertension; D16.9 Benign neoplasm of bone and articular cartilage, unspecified; E66.9 Obesity, unspecified; D53.9 Nutritional anemia, unspecified; E11.69 Type 2 diabetes mellitus with other specified complication; Z82.49 Family history of ischemic heart disease and other diseases of the circulatory system; Z88.5 Allergy status to narcotic agent; Z88.6 Allergy status to analgesic agent; Z91.041 Radiographic dye allergy status; Z90.49 Acquired absence of other specified parts of digestive tract

== ENCOUNTER → 2019-02-03 | Outpatient (CLI) | payer MEDICARE ==
[~2019-02-03] MED LIST changes: +ASPIR-TRIN325 MG PO; +ENOXAPARIN40 MG/0.2 SC; +Percocet 325 MG1 TAB PO; +VITAMIN D50000 UNIT PO
== END | disposition home or self-care (01) ==
LOC: RESCLI 14:27
DX: I10 Essential (primary) hypertension (principal); E11.9 Type 2 diabetes mellitus without complications; B18.2 Chronic viral hepatitis C; Z79.899 Other long term (current) drug therapy

== ENCOUNTER → 2019-03-01 | Outpatient (CLI) | payer MEDICARE | END | disposition home or self-care (01) | LOC: ORTHO 00:29 | DX: Z96.651 Presence of right artificial knee joint (principal) ==

== ENCOUNTER 2019-04-18 09:33 | Inpatient (IN) | payer MEDICARE ==
[~2019-04-18] VITALS: Ht 190.5 cm; Wt 110.2 kg
[2019-04-18] VITALS (8 sets, daily range): BP systolic 138–173; BP diastolic 54–72
[2019-04-18 09:53] LABS: BASO % 0.2 % (0.0-1.0); EOS # 0.1 10*3/uL (0.0-0.4); EOS % 1.2 % (1.0-4.0); HEMATOCRIT 43.5 % (42.0-52.0); HEMOGLOBIN 14.7 g/dl (14.0-18.0); LYMPH # 1.6 10*3/uL (1.3-4.4); LYMPH % 31.3 % (27.0-41.0); MEAN CELL VOLUME 90.1 fl (80.0-94.0); MEAN CORPUSCULAR HGB 30.4 pg (27.0-31.0); MEAN CORPUSCULAR HGB CONC 33.8 g/dl (33.0-37.0); MEAN PLATELET VOLUME 10.4 fl (9.6-12.3); MONO # 0.4 10*3/uL (0.1-1.0); MONO % 7.4 % (3.0-9.0); NEUT % 59.7 % (47.0-73.0); PLATELET COUNT AUTOMATED 168 10*3/uL (130-400); RED BLOOD COUNT 4.83 10*6/uL (4.50-5.90); RED CELL DISTRI WIDTH 13.5 % (0-14.5)
[2019-04-18 10:07] LABS: ACT PARTIAL THROMBO TIME 25.2 SECONDS (20.0-32.1); INTERNATIONAL NORM RATIO 0.9 (2.0-3.5)
[2019-04-18 10:11] LABS: ALBUMIN 3.8 gm/dl (3.1-4.5); ALKALINE PHOSPHATASE 72 U/L (45-117); BUN 10 mg/dl (7-24); CHLORIDE 100 mmol/L (98-107); POTASSIUM 3.9 mmol/L (3.5-5.1); SGOT/AST 19 IU/L (3-35); SGPT/ALT 39 U/L (12-78); SODIUM 132 mmol/L (136-145); TOTAL PROTEIN 8.2 gm/dL (6.4-8.2); TROPONIN I < 0.015 ng/ml (<0.045)
--- NOTE | 2019-04-18 11:02 | NUR ---
PT POSITIONED FOR COMFORT WATCHING T.V. WITH [employer] INTACT AND CALL LIGHT WITHIN REACH,NO ADDITIONAL COMPLAINTS VOICED.
--- NOTE | 2019-04-18 14:14 | NUR ---
PT AWAITING ALL RESULTS FOR ADDITIONAL PLAN OF CARE,PT REQUESTING TO KNOW IF "I AM STAYING OR LEAVING", DISCUSSED WITH PT THAT AWAITING THE NUCLEAR MEDICINE SCAN RESULTS AND WE ARE UNABLE TO DETERMINE ADMISSION/DISCHARGE UNTIL COMPLETED,ACKNOWLEDGEMENT GIVEN AND CALL LIGHT WITHIN REACH.
--- NOTE | 2019-04-18 14:29 | NUR ---
PT WAS PROVIDED A FOOD TRAY AND FLUIDS.
--- NOTE | 2019-04-18 17:50 | NUR ---
Contacted because patient became upset when I let him know that he was not allowed to have snuff. We offered the patch, or inhaler but he said "I'm checking out of this place if I can't have snuff!"
--- NOTE | 2019-04-18 17:50 | NUR ---
A 68, admitted to , under the services of KAREN Cabrera DO with a diagnosis of Chest pain,dizziness. Chief complaint is dizziness. Patient arrived via stretcher from ER. Monitor applied. Initial assessment completed. Vital signs taken and recorded. KAREN CABRERA DO notified of admission to the unit. Orders received. See assessment for past medical history, medications and allergies. Patient and/or family oriented to unit. [address] visitation policy reviewed. Clothing/patient valuable form completed. MAURY BAIRES
--- NOTE | 2019-04-18 18:04 | NUR ---
at bedside to speak with patient about tabacco policy.
--- NOTE | 2019-04-18 18:09 | NUR ---
spoke with patient patient declined nicotine inhaler, patch or gum. Patient stated he will try to go without snuff, and if he has to leave at 0200, then he'll leave.
[2019-04-18] MEDS ORDERED: [UNRECOGNIZED DRUG - MIXTURE] SL (19:03)
--- NOTE | 2019-04-18 19:10 | NUR ---
Notified that patients home med list was up to date and that his ortho's were negative.
--- NOTE | 2019-04-18 19:30 | NUR ---
Spoke with regarding consult. Per physician echo in the morning and he will follow up at patients bedside.
--- NOTE | 2019-04-18 20:05 | NUR ---
24 HR chart check completed.
--- NOTE | 2019-04-18 21:54 | NUR ---
AMBIEN GIVEN PER ORDER FOR INSOMNIA.
[2019-04-19] VITALS: BP 137/66
--- NOTE | 2019-04-19 01:40 | NUR ---
sleeping, no distress noted.
[2019-04-19 06:14] LABS: BASO % 0.4 % (0.0-1.0); EOS # 0.1 10*3/uL (0.0-0.4); EOS % 1.4 % (1.0-4.0); HEMATOCRIT 42.7 % (42.0-52.0); HEMOGLOBIN 14.3 g/dl (14.0-18.0); LYMPH # 1.7 10*3/uL (1.3-4.4); LYMPH % 30.5 % (27.0-41.0); MEAN CELL VOLUME 90.9 fl (80.0-94.0); MEAN CORPUSCULAR HGB 30.4 pg (27.0-31.0); MEAN CORPUSCULAR HGB CONC 33.5 g/dl (33.0-37.0); MEAN PLATELET VOLUME 10.6 fl (9.6-12.3); MONO # 0.6 10*3/uL (0.1-1.0); MONO % 10.2 % (3.0-9.0); NEUT # 3.3 10*3/uL (2.3-7.9); NEUT % 57.3 % (47.0-73.0); PLATELET COUNT AUTOMATED 159 10*3/uL (130-400); RED CELL DISTRI WIDTH 13.6 % (0-14.5); WHITE BLOOD COUNT 5.7 10*3/uL (4.8-10.8)
[2019-04-19 06:22] LABS: INTERNATIONAL NORM RATIO 0.9 (2.0-3.5)
[2019-04-19 06:32] LABS: ALBUMIN 3.9 gm/dl (3.1-4.5); BUN 10 mg/dl (7-24); CHLORIDE 102 mmol/L (98-107); CREATININE 0.74 mg/dL (0.70-1.30); POTASSIUM 4.2 mmol/L (3.5-5.1); SGOT/AST 21 IU/L (3-35); SGPT/ALT 38 U/L (12-78); SODIUM 134 mmol/L (136-145)
[2019-04-19 06:40] LABS: ALKALINE PHOSPHATASE 68 U/L (45-117); CHOLESTEROL 165 mg/dL (<200); HDL CHOLESTEROL 43 mg/dl (40-60); LDL CHOLESTEROL 80 mg/dL (9-159); PHOSPHOROUS 3.5 mg/dL (2.5-4.9); TRIGLYCERIDES 208 mg/dl (<150); VLDL CHOLESTEROL 42 mg/dL (6-40)
[2019-04-19 08:00] VITALS: BP 139/65
--- NOTE | 2019-04-19 09:00 | NUR ---
Room Service Waiter in to talk to patient. Patient states lives at home with alone. There are 3 steps in the home. Physician: [facility] services: none Patient's level of ADLs: INDEPENDENT Patient has working utilities: all working DME: none Follow-up physician's appointment after d/c: will be made by hospitalist nurse director upon discharge Does patient want to access PORTAL?: no Discharge plan discussed with patient, he states he lives at home alone, he is independent in adls and ambulation, drives, dicussed with him having a fall and possibly needed home health or a short term long term, he declined both options, he stated he didn't fall that he became dizzy and fell into the wall, he stated he would return home when medically stable and denies any home needs, case management will follow. LISBET GUZMAN
[2019-04-19 12:00] VITALS: BP 120/54
[2019-04-19 16:00] VITALS: BP 136/70
--- NOTE | 2019-04-19 19:30 | NUR ---
TOOK OVER CARE OF PT. PT RESTING IN BED, EYES OPEN. ALERT ORIENTED AND PLEASANT WITH NO COMPLAINTS. WILL CONTINUE TO MONITOR. RESPIRATIONS EASY AND UNLABORED. CALL LIGHT IN REACH.
[2019-04-19 20:00] VITALS: BP 143/57
[2019-04-20] VITALS: BP 133/62
--- NOTE | 2019-04-20 | NUR ---
PT RESTING .EYES CLOSED. RESPIRATIONS EASY AND UNLABORED ON HOME CPAP MACHINE IN ROOM. WILL CONTINUE TO MONITOR. CALL LIGHT IN REACH.
--- NOTE | 2019-04-20 06:00 | NUR ---
PT GIVEN AM MEDS, TAKEN WITH EASE. NO S/S OF DISTRESS. NO COMPLAINTS VOICED. CALL LIGHT IN REACH.
[2019-04-20 08:00] VITALS: BP 138/72; BP 142/80
--- NOTE | 2019-04-20 09:00 | NUR ---
case management visits with patient, he states he is being discharged to home today and denies any home needs
--- NOTE | 2019-04-20 09:31 | NUR ---
Physical Therapy Skilled PT evaluation performed, 4E. Patient has history of Right knee replacement in January and is participating in outpatient PT services. Patient independent in room with no LOB or dizziness noted. Low complexity PT evaluation completed ([id number]). Recommend patient return home at discharge and continue with outpatient PT services. Thank you. Elisabeth Fink,PT,DPT
--- NOTE | 2019-04-20 10:11 | NUR ---
Occupational Therapy evaluation compelted on the 4th floor with full eval to follow. Low complexity level. Reccomend Home. Precations: hx falls, IV site. Thank you for this referral, Aury Caal OTR/L
[2019-04-20] MEDS ORDERED: MECLIZINE HYD12.5 MG PO (10:39)
--- NOTE | 2019-04-20 11:30 | NUR ---
PATIENT DISCHARGED TO HOME WITH MEDICATIONS AND INSTRUCTIONS.
== END 2019-04-20 11:25 | disposition home or self-care (01) | DRG 206 ==
LOC: ED 09:33 → 4E 17:02 → EDHOLD 17:02 → 4E 17:42
PROVIDERS: Emergency Medicine; Student in an Organized Health Care Education/Training Program; ADMIT Internal Medicine
DX: M94.0 Chondrocostal junction syndrome [Tietze] (principal); E87.1 Hypo-osmolality and hyponatremia; H81.10 Benign paroxysmal vertigo, unspecified ear; K21.9 Gastro-esophageal reflux disease without esophagitis; F17.220 Nicotine dependence, chewing tobacco, uncomplicated; Z71.6 Tobacco abuse counseling; E11.65 Type 2 diabetes mellitus with hyperglycemia; G89.29 Other chronic pain; K21.0 Gastro-esophageal reflux disease with esophagitis; I10 Essential (primary) hypertension; E66.9 Obesity, unspecified; Z96.651 Presence of right artificial knee joint; Z68.30 Body mass index [BMI] 30.0-30.9, adult; Z88.5 Allergy status to narcotic agent; Z88.8 Allergy status to other drugs, medicaments and biological substances; Z90.49 Acquired absence of other specified parts of digestive tract; Z82.49 Family history of ischemic heart disease and other diseases of the circulatory system; Z79.899 Other long term (current) drug therapy

== ENCOUNTER → 2019-07-16 | Outpatient (CLI) | payer MEDICARE ==
[~2019-07-16] MED LIST changes: +MECLIZINE HYD12.5 MG PO; +[UNRECOGNIZED DRUG - MIXTURE] SL
[2019-07-16 07:39] LABS: ALKALINE PHOSPHATASE 66 U/L (45-117); BILIRUBIN, DIRECT 0.3 mg/dL (0.0-0.2); BUN 12 mg/dl (7-24); CHLORIDE 103 mmol/L (98-107); CHOLESTEROL 175 mg/dL (<200); CREATININE 0.86 mg/dL (0.70-1.30); HDL CHOLESTEROL 47 mg/dl (40-60); LDL CHOLESTEROL 106 mg/dL (9-159); POTASSIUM 4.5 mmol/L (3.5-5.1); SGOT/AST 23 IU/L (3-35); SGPT/ALT 41 U/L (12-78); SODIUM 133 mmol/L (136-145); TOTAL PROTEIN 8.2 gm/dL (6.4-8.2); TRIGLYCERIDES 111 mg/dl (<150); VLDL CHOLESTEROL 22 mg/dL (6-40)
== END | disposition home or self-care (01) ==
LOC: LAB 07:03
PROVIDERS: Internal Medicine
DX: I10 Essential (primary) hypertension (principal); E11.9 Type 2 diabetes mellitus without complications; Z12.5 Encounter for screening for malignant neoplasm of prostate

== ENCOUNTER → 2019-07-23 | Outpatient (CLI) | payer MEDICARE ==
[2019-07-23 08:02] LABS: BASO % 0.2 % (0.0-1.0); EOS # 0.1 10*3/uL (0.0-0.4); EOS % 1.1 % (1.0-4.0); HEMATOCRIT 40.2 % (42.0-52.0); LYMPH # 1.7 10*3/uL (1.3-4.4); LYMPH % 29.6 % (27.0-41.0); MEAN CELL VOLUME 92.6 fl (80.0-94.0); MEAN CORPUSCULAR HGB CONC 34.6 g/dl (33.0-37.0); MEAN PLATELET VOLUME 10.1 fl (9.6-12.3); MONO # 0.5 10*3/uL (0.1-1.0); MONO % 9.2 % (3.0-9.0); NEUT # 3.4 10*3/uL (2.3-7.9); NEUT % 59.5 % (47.0-73.0); PLATELET COUNT AUTOMATED 144 10*3/uL (130-400); RED BLOOD COUNT 4.34 10*6/uL (4.50-5.90); RED CELL DISTRI WIDTH 12.6 % (0-14.5); WHITE BLOOD COUNT 5.7 10*3/uL (4.8-10.8)
[2019-07-23 08:33] LABS: ALBUMIN 3.9 gm/dl (3.1-4.5); ALKALINE PHOSPHATASE 66 U/L (45-117); BUN 13 mg/dl (7-24); CHLORIDE 99 mmol/L (98-107); CREATININE 0.73 mg/dL (0.70-1.30); POTASSIUM 4.4 mmol/L (3.5-5.1); SGOT/AST 22 IU/L (3-35); SGPT/ALT 38 U/L (12-78); SODIUM 131 mmol/L (136-145); TOTAL PROTEIN 8.3 gm/dL (6.4-8.2)
[2019-07-23 08:34] LABS: BILIRUBIN, DIRECT 0.3 mg/dL (0.0-0.2)
== END | disposition home or self-care (01) ==
LOC: LAB 07:41
PROVIDERS: Internal Medicine Gastroenterology
DX: B18.2 Chronic viral hepatitis C (principal); R19.7 Diarrhea, unspecified

== ENCOUNTER → 2019-09-25 | Outpatient (CLI) | payer MEDICARE | END | disposition home or self-care (01) | LOC: US 10:29 → LAB 10:29 → US 12:30 | DX: Z12.5 Encounter for screening for malignant neoplasm of prostate (principal); R53.83 Other fatigue; D40.0 Neoplasm of uncertain behavior of prostate; N28.89 Other specified disorders of kidney and ureter ==

== ENCOUNTER → 2019-12-06 | Outpatient (CLI) | payer MEDICARE ==
[2019-12-06 09:33] LABS: ALBUMIN 3.9 gm/dl (3.1-4.5); BUN 14 mg/dl (7-24); CHLORIDE 98 mmol/L (98-107); POTASSIUM 4.7 mmol/L (3.5-5.1); SODIUM 131 mmol/L (136-145)
[2019-12-06 09:38] LABS: VITAMIN D, 25-HYDROXY 25.1 ng/mL (30-100)
[2019-12-06 09:47] LABS: ALKALINE PHOSPHATASE 67 U/L (45-117); BILIRUBIN, DIRECT 0.2 mg/dL (0.0-0.2); CHOLESTEROL 216 mg/dL (<200); CREATININE 0.93 mg/dL (0.70-1.30); HDL CHOLESTEROL 37 mg/dl (40-60); SGOT/AST 40 IU/L (3-35); SGPT/ALT 56 U/L (12-78); TOTAL PROTEIN 8.2 gm/dL (6.4-8.2); TRIGLYCERIDES 458 mg/dl (<150)
== END | disposition home or self-care (01) ==
LOC: LAB 08:25
PROVIDERS: ATTEND Internal Medicine
DX: E11.9 Type 2 diabetes mellitus without complications (principal); R53.83 Other fatigue; E55.9 Vitamin D deficiency, unspecified

== ENCOUNTER → 2019-12-14 | Outpatient (CLI) | payer MEDICARE | END | disposition home or self-care (01) | LOC: RESCLI 05:13 | PROVIDERS: ATTEND Internal Medicine | DX: E11.9 Type 2 diabetes mellitus without complications (principal); I10 Essential (primary) hypertension; E55.9 Vitamin D deficiency, unspecified; G47.00 Insomnia, unspecified; G89.29 Other chronic pain; M25.561 Pain in right knee; F17.200 Nicotine dependence, unspecified, uncomplicated; Z79.899 Other long term (current) drug therapy; Z23 Encounter for immunization; Z98.890 Other specified postprocedural states ==

== ENCOUNTER → 2019-12-19 | Outpatient (CLI) | payer MEDICARE | END | disposition home or self-care (01) | LOC: RAD 07:25 | PROVIDERS: ATTEND Family Medicine | DX: M25.461 Effusion, right knee (principal); Z96.651 Presence of right artificial knee joint ==

== ENCOUNTER → 2019-12-22 | Outpatient (CLI) | payer MEDICARE | END | disposition home or self-care (01) | LOC: ORTHO 11:02 | PROVIDERS: ATTEND Orthopaedic Surgery | DX: M25.551 Pain in right hip (principal) ==

== ENCOUNTER → 2020-02-21 | Outpatient (CLI) | payer MEDICARE | END | disposition home or self-care (01) | LOC: RESCLI 00:10 | PROVIDERS: ATTEND Internal Medicine Nephrology | DX: G47.00 Insomnia, unspecified (principal); E11.9 Type 2 diabetes mellitus without complications; E78.5 Hyperlipidemia, unspecified; I10 Essential (primary) hypertension; E55.9 Vitamin D deficiency, unspecified; Z79.899 Other long term (current) drug therapy; Z79.84 Long term (current) use of oral hypoglycemic drugs ==

== ENCOUNTER → 2020-03-21 | Outpatient (CLI) | payer MEDICARE ==
[2020-03-21 10:54] LABS: ALKALINE PHOSPHATASE 70 U/L (45-117); BILIRUBIN, DIRECT 0.3 mg/dL (0.0-0.2); BUN 14 mg/dl (7-24); CHLORIDE 97 mmol/L (98-107); CHOLESTEROL 204 mg/dL (<200); CREATININE 0.91 mg/dL (0.70-1.30); HDL CHOLESTEROL 43 mg/dl (40-60); POTASSIUM 4.6 mmol/L (3.5-5.1); SGOT/AST 45 IU/L (3-35); SGPT/ALT 76 U/L (12-78); SODIUM 129 mmol/L (136-145); TOTAL PROTEIN 8.2 gm/dL (6.4-8.2); TRIGLYCERIDES 403 mg/dl (<150)
== END | disposition home or self-care (01) ==
LOC: LAB 10:06
PROVIDERS: ATTEND Psychiatry & Neurology Psychiatry
DX: E11.9 Type 2 diabetes mellitus without complications (principal); I10 Essential (primary) hypertension; E55.9 Vitamin D deficiency, unspecified

== ENCOUNTER → 2020-08-19 | Outpatient (CLI) | payer MEDICARE ==
[2020-08-19 09:11] LABS: BASO % 0.1 % (0.0-1.0); EOS % 0.4 % (1.0-4.0); HEMATOCRIT 36.6 % (42.0-52.0); LYMPH # 1.2 10*3/uL (1.3-4.4); LYMPH % 18.4 % (27.0-41.0); MEAN CELL VOLUME 95.8 fl (80.0-94.0); MEAN CORPUSCULAR HGB 33.5 pg (27.0-31.0); MEAN PLATELET VOLUME 10.2 fl (9.6-12.3); MONO # 0.5 10*3/uL (0.1-1.0); MONO % 7.4 % (3.0-9.0); NEUT # 4.9 10*3/uL (2.3-7.9); NEUT % 73.4 % (47.0-73.0); PLATELET COUNT AUTOMATED 146 10*3/uL (130-400); RED BLOOD COUNT 3.82 10*6/uL (4.50-5.90); RED CELL DISTRI WIDTH 11.9 % (0-14.5); WHITE BLOOD COUNT 6.7 10*3/uL (4.8-10.8)
[2020-08-19 09:38] LABS: FERRITIN 116.3 ng/mL (22.0-322.0)
[2020-08-19 09:43] LABS: ALBUMIN 4.3 gm/dl (3.1-4.5); ALKALINE PHOSPHATASE 50 U/L (45-117); BILIRUBIN, DIRECT 0.3 mg/dL (0.0-0.2); BUN 25 mg/dl (7-24); CHLORIDE 103 mmol/L (98-107); CREATININE 1.18 mg/dL (0.70-1.30); IRON 73 ug/dL (65-175); POTASSIUM 4.6 mmol/L (3.5-5.1); SGOT/AST 41 IU/L (3-35); SODIUM 134 mmol/L (136-145); TOTAL IRON BINDING CAPACITY 415 ug/dl (250-450); TOTAL PROTEIN 8.4 gm/dL (6.4-8.2)
[2020-08-19 09:51] LABS: SGPT/ALT 58 U/L (12-78)
== END | disposition home or self-care (01) ==
LOC: LAB 08:42
PROVIDERS: Internal Medicine Gastroenterology; ATTEND Internal Medicine
DX: B19.20 Unspecified viral hepatitis C without hepatic coma (principal); E11.9 Type 2 diabetes mellitus without complications; E87.1 Hypo-osmolality and hyponatremia; K74.60 Unspecified cirrhosis of liver

== ENCOUNTER → 2020-11-20 | Outpatient (CLI) | payer MEDICARE ==
[2020-11-20 09:11] LABS: BUN 12 mg/dl (7-24); CHLORIDE 99 mmol/L (98-107); IRON 73 ug/dL (65-175); POTASSIUM 4.6 mmol/L (3.5-5.1); SGOT/AST 36 IU/L (3-35); SGPT/ALT 55 U/L (12-78); SODIUM 130 mmol/L (136-145); TOTAL IRON BINDING CAPACITY 415 ug/dl (250-450); TOTAL PROTEIN 8.1 gm/dL (6.4-8.2)
[2020-11-20 09:12] LABS: ALKALINE PHOSPHATASE 46 U/L (45-117)
[2020-11-20 09:18] LABS: BASO % 0.2 % (0.0-1.0); EOS % 0.5 % (1.0-4.0); HEMATOCRIT 34.7 % (42.0-52.0); LYMPH # 1.3 10*3/uL (1.3-4.4); LYMPH % 31.2 % (27.0-41.0); MEAN CELL VOLUME 95.1 fl (80.0-94.0); MEAN CORPUSCULAR HGB 33.7 pg (27.0-31.0); MEAN CORPUSCULAR HGB CONC 35.4 g/dl (33.0-37.0); MEAN PLATELET VOLUME 10.3 fl (9.6-12.3); MONO # 0.4 10*3/uL (0.1-1.0); MONO % 8.7 % (3.0-9.0); NEUT # 2.4 10*3/uL (2.3-7.9); NEUT % 59.2 % (47.0-73.0); PLATELET COUNT AUTOMATED 152 10*3/uL (130-400); RED BLOOD COUNT 3.65 10*6/uL (4.50-5.90)
[2020-11-20 09:39] LABS: FERRITIN 147.4 ng/mL (22.0-322.0)
== END | disposition home or self-care (01) ==
LOC: LAB 08:26
PROVIDERS: Internal Medicine; ATTEND Internal Medicine Gastroenterology
DX: Z12.5 Encounter for screening for malignant neoplasm of prostate (principal); E11.9 Type 2 diabetes mellitus without complications; I10 Essential (primary) hypertension

== ENCOUNTER → 2020-11-29 | Outpatient (CLI) | payer MEDICARE | END | disposition home or self-care (01) | LOC: MRI 12:42 | PROVIDERS: ATTEND Specialist | DX: H90.3 Sensorineural hearing loss, bilateral (principal) ==

== ENCOUNTER → 2020-12-18 | Outpatient (CLI) | payer MEDICARE | END | disposition home or self-care (01) | LOC: MRI 09:39 | PROVIDERS: ATTEND Student in an Organized Health Care Education/Training Program | DX: M47.816 Spondylosis without myelopathy or radiculopathy, lumbar region (principal); M48.061 Spinal stenosis, lumbar region without neurogenic claudication; M51.27 Other intervertebral disc displacement, lumbosacral region; M25.561 Pain in right knee; M96.1 Postlaminectomy syndrome, not elsewhere classified ==

== ENCOUNTER → 2021-04-20 | Outpatient (CLI) | payer MEDICARE ==
[2021-04-20 10:00] LABS: BASO % 0.2 % (0.0-1.0); EOS % 0.5 % (1.0-4.0); HEMATOCRIT 36.1 % (42.0-52.0); LYMPH # 1.4 10*3/uL (1.3-4.4); LYMPH % 25.9 % (27.0-41.0); MEAN CELL VOLUME 92.6 fl (80.0-94.0); MEAN CORPUSCULAR HGB 33.6 pg (27.0-31.0); MEAN CORPUSCULAR HGB CONC 36.3 g/dl (33.0-37.0); MEAN PLATELET VOLUME 9.7 fl (9.6-12.3); MONO # 0.5 10*3/uL (0.1-1.0); MONO % 8.5 % (3.0-9.0); NEUT # 3.6 10*3/uL (2.3-7.9); NEUT % 64.5 % (47.0-73.0); PLATELET COUNT AUTOMATED 130 10*3/uL (130-400); RED CELL DISTRI WIDTH 12.1 % (0-14.5); WHITE BLOOD COUNT 5.5 10*3/uL (4.8-10.8)
[2021-04-20 10:19] LABS: ALKALINE PHOSPHATASE 46 U/L (45-117); BUN 21 mg/dl (7-24); CHLORIDE 100 mmol/L (98-107); CHOLESTEROL 184 mg/dL (<200); CREATININE 1.05 mg/dL (0.70-1.30); LDL CHOLESTEROL 100 mg/dL (9-159); POTASSIUM 5.1 mmol/L (3.5-5.1); SGOT/AST 43 IU/L (3-35); SGPT/ALT 52 U/L (12-78); SODIUM 129 mmol/L (136-145); TOTAL PROTEIN 8.3 gm/dL (6.4-8.2); TRIGLYCERIDES 105 mg/dl (<150)
[2021-04-20 10:27] LABS: THYROID STIM HORMONE (HS) 0.964 uIU/ml (0.358-4.75)
== END | disposition home or self-care (01) ==
LOC: LAB 09:30
PROVIDERS: ATTEND Internal Medicine
DX: E11.9 Type 2 diabetes mellitus without complications (principal); I10 Essential (primary) hypertension

== ENCOUNTER → 2021-07-25 | Outpatient (CLI) | payer MEDICARE ==
[2021-07-25 08:38] LABS: IRON 113 ug/dL (65-175); TOTAL IRON BINDING CAPACITY 424 ug/dl (250-450)
[2021-07-25 08:41] LABS: BUN 16 mg/dl (7-24); CHLORIDE 96 mmol/L (98-107); CHOLESTEROL 188 mg/dL (<200); CREATININE 0.97 mg/dL (0.70-1.30); SGOT/AST 37 IU/L (3-35); SGPT/ALT 51 U/L (12-78); SODIUM 126 mmol/L (136-145); TOTAL PROTEIN 8.1 gm/dL (6.4-8.2); TRIGLYCERIDES 103 mg/dl (<150)
[2021-07-25 08:44] LABS: FERRITIN 143.4 ng/mL (22.0-322.0)
[2021-07-25 08:47] LABS: BASO % 0.2 % (0.0-1.0); EOS % 0.4 % (1.0-4.0); HEMATOCRIT 33.8 % (42.0-52.0); LYMPH # 1.3 10*3/uL (1.3-4.4); LYMPH % 24.4 % (27.0-41.0); MEAN CELL VOLUME 91.6 fl (80.0-94.0); MEAN PLATELET VOLUME 10.4 fl (9.6-12.3); MONO # 0.4 10*3/uL (0.1-1.0); MONO % 8.3 % (3.0-9.0); NEUT # 3.4 10*3/uL (2.3-7.9); NEUT % 66.3 % (47.0-73.0); PLATELET COUNT AUTOMATED 154 10*3/uL (130-400); RED BLOOD COUNT 3.69 10*6/uL (4.50-5.90); RED CELL DISTRI WIDTH 12.1 % (0-14.5); RETICULOCYTE % 2.32 % (0.50-2.50); WHITE BLOOD COUNT 5.2 10*3/uL (4.8-10.8)
[2021-07-25 08:50] LABS: ALKALINE PHOSPHATASE 46 U/L (45-117); LDL CHOLESTEROL 118 mg/dL (9-159)
[2021-07-25 08:58] LABS: MEAN CORPUSCULAR HGB CONC 37.3 g/dl (33.0-37.0)
[2021-07-25 08:59] LABS: MEAN CORPUSCULAR HGB 34.1 pg (27.0-31.0)
== END | disposition home or self-care (01) ==
LOC: LAB 07:36
PROVIDERS: Internal Medicine; ATTEND Internal Medicine Gastroenterology
DX: Z12.5 Encounter for screening for malignant neoplasm of prostate (principal); K74.60 Unspecified cirrhosis of liver; E11.9 Type 2 diabetes mellitus without complications; I10 Essential (primary) hypertension; D64.9 Anemia, unspecified

== ENCOUNTER → 2021-08-06 | Outpatient (CLI) | payer MEDICARE ==
[2021-08-06 10:44] LABS: BUN 17 mg/dl (7-24); CHLORIDE 98 mmol/L (98-107); CREATININE 1.05 mg/dL (0.70-1.30); POTASSIUM 4.6 mmol/L (3.5-5.1); SODIUM 127 mmol/L (136-145)
== END | disposition home or self-care (01) ==
LOC: LAB 09:46
PROVIDERS: ATTEND Internal Medicine
DX: E10.9 Type 1 diabetes mellitus without complications (principal)

== ENCOUNTER → 2021-10-25 | Outpatient (CLI) | payer MEDICARE ==
[2021-10-25 07:52] LABS: ALKALINE PHOSPHATASE 62 U/L (45-117); BUN 21 mg/dl (7-24); CHLORIDE 98 mmol/L (98-107); CREATININE 1.15 mg/dL (0.70-1.30); POTASSIUM 5.3 mmol/L (3.5-5.1); SGOT/AST 32 IU/L (3-35); SGPT/ALT 54 U/L (12-78); SODIUM 126 mmol/L (136-145); TOTAL PROTEIN 8.3 gm/dL (6.4-8.2)
[2021-10-25 08:00] LABS: ACT PARTIAL THROMBO TIME 25.4 SECONDS (20.0-32.1); INTERNATIONAL NORM RATIO 0.9 (2.0-3.5)
[2021-10-25 08:03] LABS: BASO % 0.4 % (0.0-1.0); EOS # 0.1 10*3/uL (0.0-0.4); EOS % 0.9 % (1.0-4.0); HEMATOCRIT 35.3 % (42.0-52.0); LYMPH # 1.9 10*3/uL (1.3-4.4); LYMPH % 35.3 % (27.0-41.0); MEAN CELL VOLUME 93.1 fl (80.0-94.0); MEAN CORPUSCULAR HGB 34.6 pg (27.0-31.0); MEAN PLATELET VOLUME 10.2 fl (9.6-12.3); MONO # 0.6 10*3/uL (0.1-1.0); MONO % 10.1 % (3.0-9.0); NEUT # 2.9 10*3/uL (2.3-7.9); NEUT % 52.8 % (47.0-73.0); PLATELET COUNT AUTOMATED 147 10*3/uL (130-400); RED BLOOD COUNT 3.79 10*6/uL (4.50-5.90); RED CELL DISTRI WIDTH 11.8 % (0-14.5); WHITE BLOOD COUNT 5.5 10*3/uL (4.8-10.8)
[2021-10-25 08:06] LABS: MEAN CORPUSCULAR HGB CONC 37.1 g/dl (33.0-37.0)
== END ==
LOC: LAB 07:15
PROVIDERS: ATTEND Urology
DX: I45.10 Unspecified right bundle-branch block (principal); Z01.818 Encounter for other preprocedural examination; M47.819 Spondylosis without myelopathy or radiculopathy, site unspecified

== ENCOUNTER 2021-11-01 09:27 | Emergency (ER) | payer MEDICARE ==
[~2021-11-01] VITALS: Ht 187.9 cm; Wt 127.0 kg
[2021-11-01] MEDS ORDERED: LIDODERM1 EACH T (11:46)
[2021-11-01] MEDS ORDERED: RELAFEN500 M1 PO (11:46)
== END 2021-11-01 12:14 | disposition home or self-care (01) ==
LOC: ED 09:27
DX: M25.531 Pain in right wrist (principal); M25.521 Pain in right elbow; Z91.041 Radiographic dye allergy status; Z88.6 Allergy status to analgesic agent; Z79.899 Other long term (current) drug therapy; Z90.89 Acquired absence of other organs; Z90.49 Acquired absence of other specified parts of digestive tract; Z98.890 Other specified postprocedural states; Z87.891 Personal history of nicotine dependence; W18.39XA Other fall on same level, initial encounter; Y93.89 Activity, other specified; Y92.89 Other specified places as the place of occurrence of the external cause; Y99.8 Other external cause status

== ENCOUNTER → 2021-11-12 | Outpatient (CLI) | payer MEDICARE ==
[~2021-11-12] MED LIST changes: +LIDODERM1 EACH T; +RELAFEN500 M1 PO
== END | disposition home or self-care (01) ==
LOC: CT 08:00 → NM 10:00
PROVIDERS: ATTEND Urology
DX: C61 Malignant neoplasm of prostate (principal); K76.0 Fatty (change of) liver, not elsewhere classified; Z90.49 Acquired absence of other specified parts of digestive tract; K76.89 Other specified diseases of liver; N42.89 Other specified disorders of prostate

== ENCOUNTER → 2021-11-25 | Outpatient (CLI) | payer MEDICARE | END | disposition home or self-care (01) | LOC: CARD 11-24 06:31 | PROVIDERS: ATTEND Internal Medicine Cardiovascular Disease | DX: I45.10 Unspecified right bundle-branch block (principal); I25.89 Other forms of chronic ischemic heart disease; E11.9 Type 2 diabetes mellitus without complications ==

== ENCOUNTER → 2021-12-18 | Outpatient (CLI) | payer MEDICARE ==
[2021-12-18 09:40] LABS: CHLORIDE 99 mmol/L (98-107); POTASSIUM 5.1 mmol/L (3.5-5.1); SODIUM 131 mmol/L (136-145)
[2021-12-18 10:51] LABS: ALKALINE PHOSPHATASE 66 U/L (45-117); BUN 22 mg/dl (7-24); CHOLESTEROL 212 mg/dL (<200); CREATININE 1.09 mg/dL (0.70-1.30); SGOT/AST 41 IU/L (3-35); SGPT/ALT 66 U/L (12-78); TRIGLYCERIDES 543 mg/dl (<150)
== END ==
LOC: LAB 08:55
PROVIDERS: Internal Medicine; ATTEND Emergency Medicine
DX: E11.9 Type 2 diabetes mellitus without complications (principal); E55.9 Vitamin D deficiency, unspecified; G47.00 Insomnia, unspecified; I10 Essential (primary) hypertension; F17.200 Nicotine dependence, unspecified, uncomplicated; Z88.5 Allergy status to narcotic agent; Z88.6 Allergy status to analgesic agent; Z82.49 Family history of ischemic heart disease and other diseases of the circulatory system; Z98.890 Other specified postprocedural states; Z79.84 Long term (current) use of oral hypoglycemic drugs; Z79.899 Other long term (current) drug therapy

== ENCOUNTER → 2022-01-07 | Outpatient (CLI) | payer MEDICARE | END | disposition home or self-care (01) | LOC: MRI 00:09 | PROVIDERS: ATTEND Orthopaedic Surgery | DX: M47.817 Spondylosis without myelopathy or radiculopathy, lumbosacral region (principal); M51.37 Other intervertebral disc degeneration, lumbosacral region; M43.16 Spondylolisthesis, lumbar region; M48.062 Spinal stenosis, lumbar region with neurogenic claudication ==

== ENCOUNTER → 2022-01-23 | Outpatient (CLI) | payer MEDICARE ==
[2022-01-23 09:21] LABS: BASO % 0.2 % (0.0-1.0); EOS # 0.1 10*3/uL (0.0-0.4); EOS % 1.7 % (1.0-4.0); HEMATOCRIT 32.6 % (42.0-52.0); LYMPH # 1.2 10*3/uL (1.3-4.4); LYMPH % 21.8 % (27.0-41.0); MEAN CELL VOLUME 92.1 fl (80.0-94.0); MEAN CORPUSCULAR HGB 33.6 pg (27.0-31.0); MEAN CORPUSCULAR HGB CONC 36.5 g/dl (33.0-37.0); MEAN PLATELET VOLUME 9.9 fl (9.6-12.3); MONO # 0.6 10*3/uL (0.1-1.0); MONO % 11.4 % (3.0-9.0); NEUT # 3.4 10*3/uL (2.3-7.9); NEUT % 64.5 % (47.0-73.0); PLATELET COUNT AUTOMATED 160 10*3/uL (130-400); RED BLOOD COUNT 3.54 10*6/uL (4.50-5.90); RED CELL DISTRI WIDTH 11.9 % (0-14.5); WHITE BLOOD COUNT 5.3 10*3/uL (4.8-10.8)
[2022-01-23 09:33] LABS: ACT PARTIAL THROMBO TIME 25.4 SECONDS (20.0-32.1); INTERNATIONAL NORM RATIO 0.9 (2.0-3.5)
[2022-01-23 10:09] LABS: BUN 19 mg/dl (9-23); CHLORIDE 96 mmol/L (98-107); CREATININE 0.89 mg/dL (0.70-1.30); POTASSIUM 5.3 mmol/L (3.4-5.1); SODIUM 128 mmol/L (136-145)
== END | disposition home or self-care (01) ==
LOC: LAB 08:39
PROVIDERS: ATTEND Urology
DX: E11.9 Type 2 diabetes mellitus without complications (principal); Z79.01 Long term (current) use of anticoagulants

== ENCOUNTER 2022-01-28 21:30 | Emergency (ER) | payer MEDICARE ==
[~2022-01-28] VITALS: Ht 187.9 cm; Wt 136.1 kg
== END 2022-01-29 01:37 | disposition home or self-care (01) ==
LOC: ED 21:30
DX: R33.9 Retention of urine, unspecified (principal); I10 Essential (primary) hypertension; K21.9 Gastro-esophageal reflux disease without esophagitis; E11.9 Type 2 diabetes mellitus without complications; E66.9 Obesity, unspecified; Z91.041 Radiographic dye allergy status; Z88.6 Allergy status to analgesic agent; Z79.899 Other long term (current) drug therapy; Z90.89 Acquired absence of other organs; Z90.49 Acquired absence of other specified parts of digestive tract; Z98.890 Other specified postprocedural states

== ENCOUNTER → 2022-03-07 | Outpatient (CLI) | payer MEDICARE ==
[2022-03-07 08:20] LABS: BASO % 0.3 % (0.0-1.0); HEMATOCRIT 34.6 % (42.0-52.0); LYMPH # 1.2 10*3/uL (1.3-4.4); LYMPH % 31.6 % (27.0-41.0); MEAN CELL VOLUME 95.1 fl (80.0-94.0); MEAN CORPUSCULAR HGB 33.2 pg (27.0-31.0); MEAN PLATELET VOLUME 9.8 fl (9.6-12.3); MONO # 0.4 10*3/uL (0.1-1.0); MONO % 9.2 % (3.0-9.0); NEUT # 2.3 10*3/uL (2.3-7.9); NEUT % 57.4 % (47.0-73.0); PLATELET COUNT AUTOMATED 140 10*3/uL (130-400); RED BLOOD COUNT 3.64 10*6/uL (4.50-5.90); RED CELL DISTRI WIDTH 12.6 % (0-14.5); WHITE BLOOD COUNT 3.9 10*3/uL (4.8-10.8)
[2022-03-07 12:25] LABS: ALKALINE PHOSPHATASE 54 U/L (46-116); BUN 15 mg/dl (9-23); CHLORIDE 97 mmol/L (98-107); POTASSIUM 4.6 mmol/L (3.4-5.1); SGPT/ALT 40 U/L (10-49); TOTAL PROTEIN 8.2 gm/dL (6.0-8.0)
== END | disposition home or self-care (01) ==
LOC: LAB 07:58
PROVIDERS: ATTEND Urology
DX: C61 Malignant neoplasm of prostate (principal); R53.83 Other fatigue

== ENCOUNTER → 2022-06-16 | Outpatient (CLI) | payer MEDICARE ==
[2022-06-16 08:12] LABS: EOS % 0.8 % (1.0-4.0); HEMATOCRIT 33.6 % (42.0-52.0); LYMPH # 1.3 10*3/uL (1.3-4.4); LYMPH % 26.5 % (27.0-41.0); MEAN CELL VOLUME 93.9 fl (80.0-94.0); MEAN CORPUSCULAR HGB CONC 35.1 g/dl (33.0-37.0); MEAN PLATELET VOLUME 9.4 fl (9.6-12.3); MONO # 0.4 10*3/uL (0.1-1.0); MONO % 8.8 % (3.0-9.0); NEUT # 3.1 10*3/uL (2.3-7.9); NEUT % 63.5 % (47.0-73.0); PLATELET COUNT AUTOMATED 141 10*3/uL (130-400); RED BLOOD COUNT 3.58 10*6/uL (4.50-5.90); RED CELL DISTRI WIDTH 12.8 % (0-14.5); WHITE BLOOD COUNT 4.9 10*3/uL (4.8-10.8)
[2022-06-16 08:47] LABS: ALKALINE PHOSPHATASE 51 U/L (46-116); BUN 15 mg/dl (9-23); CHLORIDE 92 mmol/L (98-107); CHOLESTEROL 176 mg/dL (<200); LDL CHOLESTEROL 78 mg/dL (9-159); POTASSIUM 4.8 mmol/L (3.4-5.1); SGPT/ALT 33 U/L (10-49); THYROID STIM HORMONE (HS) 2.373 uIU/ml (0.550-4.780); TOTAL PROTEIN 7.8 gm/dL (6.0-8.0); TRIGLYCERIDES 264 mg/dl (<150)
== END | disposition home or self-care (01) ==
LOC: LAB 07:52
PROVIDERS: ATTEND Family Medicine
DX: I10 Essential (primary) hypertension (principal); E11.9 Type 2 diabetes mellitus without complications; K74.60 Unspecified cirrhosis of liver

== ENCOUNTER → 2022-06-30 | Outpatient (CLI) | payer MEDICARE ==
[2022-06-30 07:40] LABS: BASO % 0.3 % (0.0-1.0); EOS % 0.7 % (1.0-4.0); HEMATOCRIT 32.3 % (42.0-52.0); LYMPH # 1.4 10*3/uL (1.3-4.4); LYMPH % 23.7 % (27.0-41.0); MEAN CELL VOLUME 92.8 fl (80.0-94.0); MEAN CORPUSCULAR HGB 33.6 pg (27.0-31.0); MEAN CORPUSCULAR HGB CONC 36.2 g/dl (33.0-37.0); MEAN PLATELET VOLUME 9.8 fl (9.6-12.3); MONO # 0.4 10*3/uL (0.1-1.0); MONO % 7.2 % (3.0-9.0); NEUT % 67.6 % (47.0-73.0); PLATELET COUNT AUTOMATED 194 10*3/uL (130-400); RED BLOOD COUNT 3.48 10*6/uL (4.50-5.90); RED CELL DISTRI WIDTH 13.2 % (0-14.5)
[2022-06-30 08:26] LABS: ALKALINE PHOSPHATASE 63 U/L (46-116); BUN 11 mg/dl (9-23); CHLORIDE 98 mmol/L (98-107); SGPT/ALT 40 U/L (10-49); TOTAL PROTEIN 7.4 gm/dL (6.0-8.0)
== END | disposition home or self-care (01) ==
LOC: LAB 07:22
PROVIDERS: ATTEND Urology
DX: D40.0 Neoplasm of uncertain behavior of prostate (principal); R53.83 Other fatigue

== ENCOUNTER → 2022-08-04 | Outpatient (CLI) | payer MEDICARE ==
[2022-08-04 08:35] LABS: BUN 20 mg/dl (9-23); CHLORIDE 94 mmol/L (98-107); POTASSIUM 4.6 mmol/L (3.4-5.1)
== END | disposition home or self-care (01) ==
LOC: LAB 07:20
PROVIDERS: ATTEND Family Medicine
DX: E11.9 Type 2 diabetes mellitus without complications (principal); I10 Essential (primary) hypertension; E87.1 Hypo-osmolality and hyponatremia

== ENCOUNTER → 2022-10-26 | Outpatient (CLI) | payer MEDICARE ==
[2022-10-26 08:53] LABS: ALKALINE PHOSPHATASE 58 U/L (46-116); BUN 12 mg/dl (9-23); CHLORIDE 95 mmol/L (98-107); POTASSIUM 4.5 mmol/L (3.4-5.1); SGPT/ALT 41 U/L (10-49)
[2022-10-26 08:56] LABS: BASO % 0.2 % (0.0-1.0); EOS % 0.8 % (1.0-4.0); HEMATOCRIT 36.9 % (42.0-52.0); LYMPH # 1.3 10*3/uL (1.3-4.4); LYMPH % 26.5 % (27.0-41.0); MEAN CELL VOLUME 91.3 fl (80.0-94.0); MEAN CORPUSCULAR HGB 33.2 pg (27.0-31.0); MEAN CORPUSCULAR HGB CONC 36.3 g/dl (33.0-37.0); MEAN PLATELET VOLUME 10.3 fl (9.6-12.3); MONO # 0.5 10*3/uL (0.1-1.0); MONO % 9.6 % (3.0-9.0); NEUT % 62.7 % (47.0-73.0); PLATELET COUNT AUTOMATED 143 10*3/uL (130-400); RED BLOOD COUNT 4.04 10*6/uL (4.50-5.90); RED CELL DISTRI WIDTH 12.6 % (0-14.5); WHITE BLOOD COUNT 4.7 10*3/uL (4.8-10.8)
[2022-10-27 04:06] LABS: AFP TUMOR MARKER 5.2 ng/mL (0.0-8.4)
[2022-10-27 05:06] LABS: HEPATITIS B SURFACE AB Reactive (.)
== END | disposition home or self-care (01) ==
LOC: LAB 07:31
PROVIDERS: Internal Medicine Gastroenterology; ATTEND Urology
DX: Z11.59 Encounter for screening for other viral diseases (principal); K74.60 Unspecified cirrhosis of liver; D40.0 Neoplasm of uncertain behavior of prostate; C61 Malignant neoplasm of prostate; I10 Essential (primary) hypertension; Z72.89 Other problems related to lifestyle; D64.9 Anemia, unspecified; R53.82 Chronic fatigue, unspecified

== ENCOUNTER → 2022-12-14 | Outpatient (CLI) | payer MEDICARE | END | disposition home or self-care (01) | LOC: RAD 08:39 | PROVIDERS: ATTEND Family Medicine | DX: M50.11 Cervical disc disorder with radiculopathy, high cervical region (principal); M48.02 Spinal stenosis, cervical region ==

== ENCOUNTER → 2023-03-05 | Outpatient (CLI) | payer MEDICARE, OTHER | END | disposition home or self-care (01) | LOC: CANPRECLI → RESCLI 02:44 | PROVIDERS: ATTEND Internal Medicine | DX: Z53.9 Procedure and treatment not carried out, unspecified reason (principal) ==

== ENCOUNTER → 2023-11-01 | Outpatient (CLI) | payer MEDICARE ==
[2023-11-01 10:11] LABS: BASO % 0.2 % (0.0-1.0); EOS # 0.1 10*3/uL (0.0-0.4); EOS % 1.4 % (1.0-4.0); HEMATOCRIT 37.3 % (42.0-52.0); LYMPH # 1.3 10*3/uL (1.3-4.4); LYMPH % 23.7 % (27.0-41.0); MEAN CORPUSCULAR HGB 32.9 pg (27.0-31.0); MEAN CORPUSCULAR HGB CONC 35.4 g/dl (33.0-37.0); MEAN PLATELET VOLUME 10.4 fl (9.6-12.3); MONO # 0.4 10*3/uL (0.1-1.0); MONO % 6.5 % (3.0-9.0); NEUT # 3.8 10*3/uL (2.3-7.9); NEUT % 67.8 % (47.0-73.0); PLATELET COUNT AUTOMATED 147 10*3/uL (130-400); RED BLOOD COUNT 4.01 10*6/uL (4.50-5.90); RED CELL DISTRI WIDTH 12.6 % (0-14.5); WHITE BLOOD COUNT 5.7 10*3/uL (4.8-10.8)
[2023-11-01 10:28] LABS: ALKALINE PHOSPHATASE 78 U/L (46-116); BUN 16 mg/dl (9-23); CHLORIDE 95 mmol/L (98-107); CHOLESTEROL 209 mg/dL (<200); CPK 200 U/L (34-171); FREE T4 1.23 ng/dl (0.89-1.76); LDL CHOLESTEROL 118 mg/dL (9-159); POTASSIUM 4.6 mmol/L (3.4-5.1); SGPT/ALT 39 U/L (5-49); TRIGLYCERIDES 204 mg/dl (<150)
[2023-11-01 10:29] LABS: VITAMIN D, 25-HYDROXY 42.8 ng/mL (30-100)
== END | disposition home or self-care (01) ==
LOC: LAB 09:28
PROVIDERS: ATTEND Internal Medicine
DX: Z12.5 Encounter for screening for malignant neoplasm of prostate (principal); Z13.0 Encounter for screening for diseases of the blood and blood-forming organs and certain disorders involving the immune mechanism; Z13.1 Encounter for screening for diabetes mellitus; Z13.21 Encounter for screening for nutritional disorder; Z13.220 Encounter for screening for lipoid disorders; Z13.228 Encounter for screening for other metabolic disorders; Z13.29 Encounter for screening for other suspected endocrine disorder; Z13.6 Encounter for screening for cardiovascular disorders; Z13.89 Encounter for screening for other disorder; Z13.9 Encounter for screening, unspecified; I10 Essential (primary) hypertension; E11.65 Type 2 diabetes mellitus with hyperglycemia; Z68.35 Body mass index [BMI] 35.0-35.9, adult

== ENCOUNTER → 2023-11-05 | Outpatient (CLI) | payer MEDICARE ==
[2023-11-05 15:37] LABS: BUN 15 mg/dl (9-23); CHLORIDE 98 mmol/L (98-107); POTASSIUM 4.7 mmol/L (3.4-5.1)
== END | disposition home or self-care (01) ==
LOC: LAB 15:06
PROVIDERS: ATTEND Internal Medicine
DX: I10 Essential (primary) hypertension (principal); E11.65 Type 2 diabetes mellitus with hyperglycemia

== ENCOUNTER → 2023-11-11 | Outpatient (CLI) | payer MEDICARE ==
[2023-11-11 10:30] LABS: BUN 12 mg/dl (9-23); CHLORIDE 98 mmol/L (98-107); POTASSIUM 4.3 mmol/L (3.4-5.1)
== END | disposition home or self-care (01) ==
LOC: LAB 09:45
PROVIDERS: ATTEND Internal Medicine
DX: Z13.0 Encounter for screening for diseases of the blood and blood-forming organs and certain disorders involving the immune mechanism (principal); Z13.1 Encounter for screening for diabetes mellitus; Z13.21 Encounter for screening for nutritional disorder; Z13.228 Encounter for screening for other metabolic disorders; Z13.29 Encounter for screening for other suspected endocrine disorder; Z13.89 Encounter for screening for other disorder; Z13.9 Encounter for screening, unspecified; I10 Essential (primary) hypertension; E11.65 Type 2 diabetes mellitus with hyperglycemia

== ENCOUNTER → 2024-02-22 | Outpatient (CLI) | payer MEDICARE ==
[2024-02-22 09:01] LABS: BASO % 0.2 % (0.0-1.0); EOS # 0.1 10*3/uL (0.0-0.4); EOS % 1.4 % (1.0-4.0); HEMATOCRIT 38.7 % (42.0-52.0); MEAN CELL VOLUME 93.5 fl (80.0-94.0); MEAN CORPUSCULAR HGB 33.3 pg (27.0-31.0); MEAN CORPUSCULAR HGB CONC 35.7 g/dl (33.0-37.0); MEAN PLATELET VOLUME 9.9 fl (9.6-12.3); MONO # 0.5 10*3/uL (0.1-1.0); MONO % 7.6 % (3.0-9.0); NEUT # 3.7 10*3/uL (2.3-7.9); NEUT % 63.1 % (47.0-73.0); PLATELET COUNT AUTOMATED 175 10*3/uL (130-400); RED BLOOD COUNT 4.14 10*6/uL (4.50-5.90); RED CELL DISTRI WIDTH 12.3 % (0-14.5); WHITE BLOOD COUNT 5.9 10*3/uL (4.8-10.8)
[2024-02-22 09:27] LABS: ALKALINE PHOSPHATASE 70 U/L (46-116); BUN 14 mg/dl (9-23); CHLORIDE 100 mmol/L (98-107); POTASSIUM 3.9 mmol/L (3.4-5.1); SGPT/ALT 50 U/L (5-49)
== END | disposition home or self-care (01) ==
LOC: LAB 08:41
PROVIDERS: ATTEND Internal Medicine Gastroenterology
DX: K74.60 Unspecified cirrhosis of liver (principal)

== ENCOUNTER → 2024-03-01 | Outpatient (CLI) | payer MEDICARE | END | disposition home or self-care (01) | LOC: RESCLI 01:49 | PROVIDERS: ATTEND Internal Medicine | DX: E11.9 Type 2 diabetes mellitus without complications (principal); G47.00 Insomnia, unspecified; E55.9 Vitamin D deficiency, unspecified; I10 Essential (primary) hypertension; C61 Malignant neoplasm of prostate; Z98.890 Other specified postprocedural states; Z79.899 Other long term (current) drug therapy; Z88.5 Allergy status to narcotic agent ==

== ENCOUNTER → 2024-04-17 | Outpatient (CLI) | payer MEDICARE | END | disposition home or self-care (01) | LOC: CARD 09:08 | PROVIDERS: ATTEND Internal Medicine Cardiovascular Disease | DX: I10 Essential (primary) hypertension (principal); R06.09 Other forms of dyspnea ==

== ENCOUNTER → 2024-08-22 | Outpatient (CLI) | payer MEDICARE ==
[2024-08-22 08:21] LABS: BASO # 0.0 10*3/uL (0.0-0.1); BASO % 0.1 % (0.0-1.0); EOS # 0.1 10*3/uL (0.0-0.4); EOS % 0.8 % (1.0-4.0); MEAN CELL VOLUME 92.6 fl (80.0-94.0); MEAN CORPUSCULAR HGB 33.3 pg (27.0-31.0); MEAN PLATELET VOLUME 9.5 fl (9.6-12.3); MONO # 0.6 10*3/uL (0.1-1.0); MONO % 8.2 % (3.0-9.0); NEUT # 5.1 10*3/uL (2.3-7.9); NEUT % 66.7 % (47.0-73.0); NUCLEATED RED BLOOD CELL 0.0 % (0.0-0.0); NUCLEATED RED BLOOD CELL 0.0 10*3/uL (0.0-0.0); PLATELET COUNT AUTOMATED 164 10*3/uL (130-400); RED CELL DISTRI WIDTH 12.2 % (0-14.5)
[2024-08-22 09:26] LABS: BUN 14 mg/dl (9-23); FREE T4 1.43 ng/dl (0.89-1.76); LDL CHOLESTEROL 89 mg/dL (9-159); SGPT/ALT 31 U/L (5-49)
[2024-08-22 09:28] LABS: VITAMIN D, 25-HYDROXY 48.3 ng/mL (30-100)
== END ==
LOC: LAB 08:02
PROVIDERS: ATTEND Internal Medicine
DX: Z12.5 Encounter for screening for malignant neoplasm of prostate (principal); I10 Essential (primary) hypertension; E55.9 Vitamin D deficiency, unspecified; E53.9 Vitamin B deficiency, unspecified; M15.0 Primary generalized (osteo)arthritis; K21.00 Gastro-esophageal reflux disease with esophagitis, without bleeding; M47.816 Spondylosis without myelopathy or radiculopathy, lumbar region; E11.65 Type 2 diabetes mellitus with hyperglycemia; E87.1 Hypo-osmolality and hyponatremia; F17.220 Nicotine dependence, chewing tobacco, uncomplicated; Z85.46 Personal history of malignant neoplasm of prostate

== ENCOUNTER → 2024-12-08 | Outpatient (CLI) | payer MEDICARE ==
[2024-12-08 08:33] LABS: BASO # 0.0 10*3/uL (0.0-0.1); BASO % 0.4 % (0.0-1.0); EOS # 0.1 10*3/uL (0.0-0.4); EOS % 1.6 % (1.0-4.0); MEAN CELL VOLUME 91.7 fl (80.0-94.0); MEAN CORPUSCULAR HGB 33.1 pg (27.0-31.0); MEAN PLATELET VOLUME 9.8 fl (9.6-12.3); MONO # 0.5 10*3/uL (0.1-1.0); MONO % 9.2 % (3.0-9.0); NEUT # 3.1 10*3/uL (2.3-7.9); NEUT % 54.6 % (47.0-73.0); NUCLEATED RED BLOOD CELL 0.0 % (0.0-0.0); NUCLEATED RED BLOOD CELL 0.0 10*3/uL (0.0-0.0); PLATELET COUNT AUTOMATED 185 10*3/uL (130-400); RED CELL DISTRI WIDTH 12.2 % (0-14.5)
[2024-12-08 09:02] LABS: BUN 11 mg/dl (9-23); SGPT/ALT 28 U/L (5-49)
== END | disposition home or self-care (01) ==
LOC: LAB 07:48
PROVIDERS: ATTEND Internal Medicine Gastroenterology
DX: K21.9 Gastro-esophageal reflux disease without esophagitis (principal); K74.60 Unspecified cirrhosis of liver; K63.5 Polyp of colon